=== PATIENT | male | born 1990 | race Caucasian/White ===

== ENCOUNTER 2016-03-31 02:31 | Emergency (ER) | payer MEDICAID, OTHER, SELFPAY ==
[~2016-03-31 02:31] MED LIST: NORCOTAB PO; OMEP40CA2 PO
[2016-03-31] MEDS ORDERED: PERCOCET 5MG/325MG TAB As Ordered ONE ×2 (03:07→04:30)
[2016-03-31 03:43] LABS: ANION GAP 7 MEQ/L (8-16); BLOOD UREA NITROGEN 16 MG/DL (7-18); CALCIUM LEVEL 9.5 MG/DL (8.5-10.1); CARBON DIOXIDE LEVEL 31 MEQ/L (21-32); CHLORIDE LEVEL 107 MEQ/L (98-107); CREATININE FOR GFR 0.89 MG/DL (0.70-1.30); GLOMERULAR FILTRATION RATE > 60.0 (>60); GLUCOSE, FASTING 81 MG/DL (70-105); POTASSIUM SERUM 3.9 MEQ/L (3.5-5.1); SODIUM LEVEL 145 MEQ/L (136-145)
--- NOTE | 2016-03-31 04:10 | REPUSA ---
CLINICAL HISTORY: Testicular pain. TECHNIQUE: Realtime sonographic images were obtained in multiple projections. COMMENTS: Both testicles are of normal size and shape and are of homogeneous echo texture. The right testicle m easures 4.5x2.5x3.1 cm. The right epididymis measures 8 mm. The left testicle measures 4.7x2.6 times a 3 cm. The left epididymis measures 7.5 mm . Bilateral changes of testicular microlithiasis. Color Doppler images reveal normal symmetrical flow to the testicles. There is no evidence for testic ular torsion. There is no evidence of varicocele or hydrocele. IMPRESSION: Left epididymoorchitis. Bilateral changes of testicular microlithiasis. No testicular torsion is seen. Thank you for your kind referral of this patient.
[2016-03-31] MEDS ORDERED: KETOROLAC 30 MG/ML VIAL (J1885) As Ordered ONE (04:29)
[2016-03-31] MEDS ORDERED: LevoFLOXacin 500 MG TABLET As Ordered ONE (04:29)
[2016-03-31] MEDS ORDERED: OXYCODONE/APAP 5MG/325MG(BULK) 1 TAB TAB As Ordered ONE (04:59)
--- NOTE | 2016-03-31 05:22 | EDDOCDS ---
Nurse's Notes [facility] Name: Steve Garcia Age: 25 yrs Sex: Male : 1990 Arrival Date: 03/31/2016 Time: 02:31 Bed D1 Private MD: Diagnosis: Epididymo-orchitis Presentation: 03/31 02:37 Presenting complaint: Patient states: Lest testicular pain with swelling and and a lf1 hardened area that has gotten worse over the last 4 days. Pain is currently 5/10 and is worse when he first wakes up and urinates. Adult Sepsis Screening:. Suicide/Homicide risk assessment- the patient denies having any suicidal and/or homicidal ideations and does not present with any other emotional, behavioral or mental health complaints. Status: Patient is not a guest services or dependent. Transition of care: patient was not received from another setting of care. 02:37 Acuity: FARNAZ Level 3 lf1 02:37 Method Of Arrival: Walkin/Carried/Asstd lf1 02:45 Adult Sepsis Screening: The patient does not have new or worsening altered mentation. tm5 Patient's respiratory rate is less than 22. Systolic blood pressure is greater than 100. Patient has a qSOFA score of 0- Negative Sepsis Screen. Triage Assessment: 02:41 General: Appears in no apparent distress, comfortable, Behavior is cooperative. Pain: lf1 Location: left testicular pain Pain currently is 5 out of 10 on a pain scale. Neurological: Level of Consciousness is awake, alert, Oriented to person, place, time. EENT: No deficits noted. Cardiovascular: Chest pain is denied. Respiratory: Respiratory effort is even, unlabored. GI: Denies nausea, vomiting. : Reports increased pain with urination and ejaculation Denies burning with urination, inability to void, urinary frequency. Derm:. Injury Description: No known injury. 03:27 Pt Declines HIV testing. cf2 Historical: - Allergies: No known drug Allergies; - Home Meds: 1. ibuprofen 800 mg Oral tab 1 tab once a day (Last dose: 03/30/2016 20:30) 2. Ambien 10 mg Oral tab 1 tab once daily 3. tizanidine 4 mg oral cap - PMHx: insomnia; Anxiety; Depression; - PSHx: none; - Social history: Smoking status: Patient states was never smoker of tobacco. No barriers to communication noted, The patient speaks fluent Mosotho, Speaks appropriately for age, Preferred Language: Mosotho. - Family history: Not pertinent. - : The pt / caregiver states he / she is not on anticoagulants. Home medication list is obtained from the patient. - Exposure Risk Screening:: None identified. Screenin:44 Screening information is obtained from the patient. Fall risk: No risks identified. lf1 Assistance ADL's: requires no assistance with activities of daily living. Abuse/DV Screen: The patient / caregiver reports he/she is: not in a situation that causes fear, pain or injury. Nutritional screening: No deficits noted. Advance Directives: Currently, there is no health care proxy. There is no active DNR order. home support is adequate. Assessment: 03:24 General: Appears in no apparent distress, comfortable, Behavior is appropriate for age, cf2 cooperative. Pain: Location: pelvis. Neurological: No deficits noted. : Reports pain in left Pain in left testicle since Monday. Derm: No deficits noted. Musculoskeletal: No deficits noted. Vital Signs: 02:41 Weight 87.54 kg (R); Height 5 ft. 11 in. (180.34 cm); Pain 5/10; lf1 02:45 BP 130 / 78; Pulse 82; Resp 16; Temp 98.4(O); Pulse Ox 97% on R/A; tm5 05:18 BP 132 / 78; Pulse 76; Resp 16; Temp 98.1(O); Pulse Ox 99% ; Pain 4/10; cf2 02:41 Body Mass Index 26.92 (87.54 kg, 180.34 cm) 1 Vitals: 02:41 Log In Time: March 31, 2016 at 02:33. 1 ED Course: 02:33 Patient visited by Guera Bales. jp5 02:33 Patient moved to Waiting jp5 02:39 Triage Initiated lf1 02:44 Patient moved to Triage 1 lf1 02:48 Patient moved to 10 tm5 02:51 Audrey Henning MD is Attending Physician. fg 02:51 Patient visited by Audrey Henning MD. fg 02:57 Becca Cheney,RN is Primary Nurse. cf2 02:57 Patient visited by Becca Cheney,JOSE E. cf2 03:07 Patient moved to Ultrasound en 03:10 Assist provider with pelvic exam:. Labs/Blood culture drawn Urine collected. Clean cf2 catch specimen. Urine specimen sent to lab. 03:24 Patient visited by Becca Cheney RN. cf2 03:24 The patient / caregiver is instructed regarding the plan of care and ED course. Patient cf2 has correct armband on for positive identification. Placed in gown. Bed in low position. Call light in reach. Side rails up X 1. Side rails up X2. Property :Personal belongings accompany Pt. Door closed. Noise minimized. Visitors limited. Lights dimmed. Moved to private room. Verbal reassurance given. Warm blanket given. Pillow given. Head of bed elevated. 03:24 Basic Metabolic Profile Sent. cf2 03:24 Urinalysis Sent. cf2 03:24 Urine Culture Sent. cf2 03:24 GC & Chlamydia Amplification Sent. cf2 03:24 Inserted saline lock: 20 gauge in left antecubital area and blood collected. The cf2 patient tolerated the procedure well. 03:40 Patient moved to 10 en 04:00 Patient visited by Becca Cheney RN. cf2 04:00 [facility] Payment Agreement was scanned into [employer] and attached to record. hs2 04:17 US Scrotal Returned. EDMS 04:36 Matthew Guevara is Referral Physician. fg 05:18 Patient moved to D1 cz 05:18 Discontinued lock. cf2 Administered Medications: 03:10 Drug: oxyCODONE-acetaminophen 1 tabs [oxycodone-acetaminophen 5 mg-325 mg tablet (1 cf2 tabs)] Route: PO; 05:21 Follow up: Response: Pain is decreased cf2 04:30 Drug: ketorolac 30 mg [ketorolac 30 mg/mL (1 mL) injection solution (1 mL)] Route: IVP; cf2 Site: left antecubital; 05:20 Follow up: Response: Pain is decreased cf2 04:30 Drug: levofloxacin 500 mg [levofloxacin 500 mg tablet (1 tabs)] Route: PO; cf2 05:20 Follow up: Response: No Adverse Reaction cf2 04:30 Drug: oxyCODONE-acetaminophen 1 tabs [oxycodone-acetaminophen 5 mg-325 mg tablet (1 cf2 tabs)] Route: PO; 05:20 Follow up: Response: Pain is decreased cf2 05:19 Drug: oxyCODONE-acetaminophen 4 pack 1 packets [oxycodone-acetaminophen 5 mg-325 mg cf2 tablet (1 tabs)] {Co-Signature: nn1 (Rainer Morales RN).} Route: PO; 05:20 Follow up: Response: Pt left department before re-evaluation is appropriate cf2 Order Results: Lab Order: Basic Metabolic Profile; SPEC'M 03/31/16 03:18 Test: GLUCOSE, FASTING; Value: 81; Range: 70-105; Units: MG/DL; Status: F Test: BLOOD UREA NITROGEN; Value: 16; Range: 7-18; Units: MG/DL; Status: F Test: CREATININE FOR GFR; Value: 0.89; Range: 0.70-1.30; Units: MG/DL; Status: F Test: GLOMERULAR FILTRATION RATE; Value: > 60.0; Range: >60; Status: F Test: SODIUM LEVEL; Value: 145; Range: 136-145; Units: MEQ/L; Status: F Test: POTASSIUM SERUM; Value: 3.9; Range: 3.5-5.1; Units: MEQ/L; Status: F Test: CHLORIDE LEVEL; Value: 107; Range: 98-107; Units: MEQ/L; Status: F Test: CARBON DIOXIDE LEVEL; Value: 31; Range: 21-32; Units: MEQ/L; Status: F Test: ANION GAP; Value: 7; Range: 8-16; Abnormal: Below low normal; Units: MEQ/L; Status: F Test: CALCIUM LEVEL; Value: 9.5; Range: 8.5-10.1; Units: MG/DL; Status: F Test Note: ; Units are mL/min/1.73 m2 Chronic Kidney Disease Staging per NKF: Stage I & II GFR >=60 Normal to Mildly Decreased Stage III GFR 30-59 Moderately Decreased Stage IV GFR 15-29 Severely Decreased Stage V GFR <15 Very Little GFR Left ESRD GFR <15 on EDITORIAL MANAGER Lab Order: Urinalysis; SPEC'M 03/31/16 03:19 Test: APPEARANCE, URINE; Value: CLEAR; Range: CLEAR; Status: F Test: COLOR, URINE; Value: YELLOW; Range: YELLOW; Status: F Test: PH,URINE; Value: 5.0; Range: 5.0-9.0; Units: UNITS; Status: F Test: SPECIFIC GRAVITY URINE AUTO; Value: 1.035; Range: 1.002-1.035; Status: F Test: PROTEIN, URINE AUTO; Value: NEGATIVE; Range: NEGATIVE; Units: mg/dL; Status: F Test: GLUCOSE, URINE (UA) AUTO; Value: NEGATIVE; Range: NEGATIVE; Units: mg/dL; Status: F Test: KETONE, URINE AUTO; Value: TRACE; Range: NEGATIVE; Abnormal: Above high normal; Units: mg/dL; Status: F Test: UROBILINOGEN, URINE AUTO; Value: 0.2; Range: 0.0-2.0; Units: mg/dL; Status: F Test: BILIRUBIN, URINE AUTO; Value: NEGATIVE; Range: NEGATIVE; Status: F Test: NITRITE, URINE AUTO; Value: NEGATIVE; Range: NEGATIVE; Status: F Test: LEUKOCYTE ESTERASE, URINE AUTO; Value: NEGATIVE; Range: NEGATIVE; Status: F Test: BLOOD, URINE BLOOD; Value: NEGATIVE; Range: NEGATIVE; Status: F Test: WBC, URINE AUTO; Value: 1; Range: 0-3; Units: /HPF; Status: F Test: RBC, URINE AUTO; Value: 4; Range: 0-3; Abnormal: Above high normal; Units: /HPF; Status: F Test: BACTERIA, URINE AUTO; Value: NEGATIVE; Range: NEGATIVE; Status: F Test: SQUAMOUS EPITHELIAL CELL UR AU; Value: 0; Range: 0-6; Units: /HPF; Status: F Test: MUCUS, URINE; Value: SMALL; Range: NEGATIVE; Status: F Test: HYALINE CAST, URINE AUTO; Value: 0; Range: 0-1; Units: /LPF; Status: F Lab Order: GC & Chlamydia Amplification; SPEC'M 03/31/16 03:19 Test: CHLAMYDIA DNA AMPLIFICATION; Value: NEGATIVE; Range: NEGATIVE; Status: F Test: GC DNA AMPLIFICATION; Value: NEGATIVE; Range: NEGATIVE; Status: F Radiology Order: US Scrotal Test: US Scrotal REASON FOR EXAMINATION: left testicular pain; ; CLINICAL HISTORY: Testicular pain.; TECHNIQUE: Realtime sonographic images were obtained in multiple projections.; COMMENTS:; Both testicles are of normal size and shape and are of homogeneous echo texture. The right testicle m; easures 4.5x2.5x3.1 cm. The right epididymis measures 8 mm. The left testicle measures 4.7x2.6 times; a 3 cm. The left epididymis measures 7.5 mm . Bilateral changes of testicular microlithiasis.; Color Doppler images reveal normal symmetrical flow to the testicles. There is no evidence for testic; ular torsion. There is no evidence of varicocele or hydrocele.; IMPRESSION:; Left epididymoorchitis.; Bilateral changes of testicular microlithiasis.; No testicular torsion is seen.; Thank you for your kind referral of this patient.; ; Outcome: 03:10 Ultrasound Study completed. cf2 04:37 Discharge ordered by Provider. fg 05:18 Discharge Assessment: Patient awake, alert and oriented x 3. No cognitive and/or cf2 functional deficits noted. Patient verbalized understanding of disposition instructions. Patient awake and alert. Oriented to person, place and time. patient administered narcotics - yes. The following High Risk Discharge criteria are identified: None. Discharged to home ambulatory, with significant other. Condition: good. 05:21 Patient left the ED. cf2 Signatures: Dispatcher [employer] EDMS Jonatan Monroe, RN RN Jodie TrotterRN RN lf1 Fatemeh Hanson Jennalee 5 Audrey Henning MD MD Connie Campbell, Reg Reg hs2 Becca Cheney RN RN cf2 Lety Winter RN RN tm5 Rainer Morales RN nn1 MTDD
--- NOTE | 2016-03-31 05:22 | EDDOCDS ---
Physician Documentation [facility] Name: Steve Garcia Age: 25 yrs Sex: Male : 1990 Arrival Date: 03/31/2016 Time: 02:31 Bed D1 Private MD: Disposition: 03/31/16 04:37 Discharged to Home/Self Care. Impression: Epididymo-orchitis. - Condition is Stable. - Discharge Instructions: Orchitis. - Prescriptions for Levaquin 500 mg Oral Tablet - take 1 tablet by ORAL route once daily for 4 days; 4 tablet. - Medication Reconciliation, Local Pharmacy Hours form. - Follow up: Matthew Guevara; When: Call to arrange an appointment; Reason: Continuance of care. - Problem is new. - Symptoms have improved. - Notes: Your ultrasound showed that you have left epididymoorchitis and bilateral changes of testicular microlithiasis. Please follow up with your PCP or the urologist. Historical: - Allergies: No known drug Allergies; - Home Meds: 1. ibuprofen 800 mg Oral tab 1 tab once a day (Last dose: 03/30/2016 20:30) 2. Ambien 10 mg Oral tab 1 tab once daily 3. tizanidine 4 mg oral cap - PMHx: insomnia; Anxiety; Depression; - PSHx: none; - Social history: Smoking status: Patient states was never smoker of tobacco. No barriers to communication noted, The patient speaks fluent Bangladeshi, Speaks appropriately for age, Preferred Language: Bangladeshi. - Family history: Not pertinent. - : The pt / caregiver states he / she is not on anticoagulants. Home medication list is obtained from the patient. - Exposure Risk Screening:: None identified. Vital Signs: 03/31 02:41 Weight 87.54 kg / 192.99 lbs (R); Height 5 ft. 11 in. (180.34 cm); Pain 5/10; lf1 02:45 BP 130 / 78; Pulse 82; Resp 16; Temp 98.4(O); Pulse Ox 97% on R/A; tm5 05:18 BP 132 / 78; Pulse 76; Resp 16; Temp 98.1(O); Pulse Ox 99% ; Pain 4/10; cf2 02:41 Body Mass Index 26.92 (87.54 kg, 180.34 cm) lf1 MDM: 03:05 IV Saline Lock ordered. fg 03:05 oxyCODONE-acetaminophen 5 mg-325 mg 1 tabs PO once ordered. fg 03:06 Basic Metabolic Profile Ordered. EDMS 03:06 Urinalysis Ordered. EDMS 03:06 GC & Chlamydia Amplification Ordered. EDMS 03:06 Urine Culture Ordered. EDMS 03:06 US Scrotal Ordered. EDMS 03:08 DUPLEX SCAN LIMITED (DOPPLER) Ordered. EDMS 03:57 Financial registration complete. hs2 04:00 [facility] Payment Agreement was scanned into [employer] and attached to record. hs2 04:28 ketorolac 30 mg IVP once ordered. fg 04:28 levofloxacin 500 mg PO once ordered. fg 04:28 oxyCODONE-acetaminophen 5 mg-325 mg 1 tabs PO once ordered. fg 04:58 oxyCODONE-acetaminophen 4 pack 5 mg-325 mg 1 packets PO once; Dispense with pt, take as fg per instruction on package ordered. Administered Medications: 03:10 Drug: oxyCODONE-acetaminophen 1 tabs [oxycodone-acetaminophen 5 mg-325 mg tablet (1 cf2 tabs)] Route: PO; 05:21 Follow up: Response: Pain is decreased cf2 04:30 Drug: ketorolac 30 mg [ketorolac 30 mg/mL (1 mL) injection solution (1 mL)] Route: IVP; cf2 Site: left antecubital; 05:20 Follow up: Response: Pain is decreased cf2 04:30 Drug: levofloxacin 500 mg [levofloxacin 500 mg tablet (1 tabs)] Route: PO; cf2 05:20 Follow up: Response: No Adverse Reaction cf2 04:30 Drug: oxyCODONE-acetaminophen 1 tabs [oxycodone-acetaminophen 5 mg-325 mg tablet (1 cf2 tabs)] Route: PO; 05:20 Follow up: Response: Pain is decreased cf2 05:19 Drug: oxyCODONE-acetaminophen 4 pack 1 packets [oxycodone-acetaminophen 5 mg-325 mg cf2 tablet (1 tabs)] {Co-Signature: nn1 (Rainer Morales RN).} Route: PO; 05:20 Follow up: Response: Pt left department before re-evaluation is appropriate cf2 Signatures: Dispatcher [employer] EDMS Jodie TrotterRN RN lf1 Audrey Henning MD MD Connie Campbell, Reg Reg hs2 Becca Cheney RN RN cf2 Rainer Morales RN nn1 The chart was reviewed and I authenticate all verbal orders and agree with the evaluation and treatment provided.Attachments: 04:00 [facility] Payment Agreement hs2 MTDD
--- NOTE | 2016-04-02 06:22 | EDDOCDS ---
Nurse's Notes [facility] Name: Steve Garcia Age: 25 yrs Sex: Male : 1990 Arrival Date: 03/31/2016 Time: 02:31 Bed D1 Private MD: Diagnosis: Epididymo-orchitis Presentation: 03/31 02:37 Presenting complaint: Patient states: Lest testicular pain with swelling and and a lf1 hardened area that has gotten worse over the last 4 days. Pain is currently 5/10 and is worse when he first wakes up and urinates. Adult Sepsis Screening:. Suicide/Homicide risk assessment- the patient denies having any suicidal and/or homicidal ideations and does not present with any other emotional, behavioral or mental health complaints. Status: Patient is not a in service educator or dependent. Transition of care: patient was not received from another setting of care. 02:37 Acuity: FARNAZ Level 3 lf1 02:37 Method Of Arrival: Walkin/Carried/Asstd lf1 02:45 Adult Sepsis Screening: The patient does not have new or worsening altered mentation. tm5 Patient's respiratory rate is less than 22. Systolic blood pressure is greater than 100. Patient has a qSOFA score of 0- Negative Sepsis Screen. Triage Assessment: 02:41 General: Appears in no apparent distress, comfortable, Behavior is cooperative. Pain: lf1 Location: left testicular pain Pain currently is 5 out of 10 on a pain scale. Neurological: Level of Consciousness is awake, alert, Oriented to person, place, time. EENT: No deficits noted. Cardiovascular: Chest pain is denied. Respiratory: Respiratory effort is even, unlabored. GI: Denies nausea, vomiting. : Reports increased pain with urination and ejaculation Denies burning with urination, inability to void, urinary frequency. Derm:. Injury Description: No known injury. 03:27 Pt Declines HIV testing. cf2 Historical: - Allergies: No known drug Allergies; - Home Meds: 1. ibuprofen 800 mg Oral tab 1 tab once a day (Last dose: 03/30/2016 20:30) 2. Ambien 10 mg Oral tab 1 tab once daily 3. tizanidine 4 mg oral cap - PMHx: insomnia; Anxiety; Depression; - PSHx: none; - Social history: Smoking status: Patient states was never smoker of tobacco. No barriers to communication noted, The patient speaks fluent Nicaraguan, Speaks appropriately for age, Preferred Language: Nicaraguan. - Family history: Not pertinent. - : The pt / caregiver states he / she is not on anticoagulants. Home medication list is obtained from the patient. - Exposure Risk Screening:: None identified. Screenin:44 Screening information is obtained from the patient. Fall risk: No risks identified. lf1 Assistance ADL's: requires no assistance with activities of daily living. Abuse/DV Screen: The patient / caregiver reports he/she is: not in a situation that causes fear, pain or injury. Nutritional screening: No deficits noted. Advance Directives: Currently, there is no health care proxy. There is no active DNR order. home support is adequate. Assessment: 03:24 General: Appears in no apparent distress, comfortable, Behavior is appropriate for age, cf2 cooperative. Pain: Location: pelvis. Neurological: No deficits noted. : Reports pain in left Pain in left testicle since Monday. Derm: No deficits noted. Musculoskeletal: No deficits noted. Vital Signs: 02:41 Weight 87.54 kg (R); Height 5 ft. 11 in. (180.34 cm); Pain 5/10; lf1 02:45 BP 130 / 78; Pulse 82; Resp 16; Temp 98.4(O); Pulse Ox 97% on R/A; tm5 05:18 BP 132 / 78; Pulse 76; Resp 16; Temp 98.1(O); Pulse Ox 99% ; Pain 4/10; cf2 02:41 Body Mass Index 26.92 (87.54 kg, 180.34 cm) 1 Vitals: 02:41 Log In Time: March 31, 2016 at 02:33. 1 ED Course: 02:33 Patient visited by Guera Bales. jp5 02:33 Patient moved to Waiting jp5 02:39 Triage Initiated lf1 02:44 Patient moved to Triage 1 lf1 02:48 Patient moved to 10 tm5 02:51 Audrey Henning MD is Attending Physician. fg 02:51 Patient visited by Audrey Henning MD. fg 02:57 Becca Cheney,RN is Primary Nurse. cf2 02:57 Patient visited by Becca Cheney,JOSE E. cf2 03:07 Patient moved to Ultrasound en 03:10 Assist provider with pelvic exam:. Labs/Blood culture drawn Urine collected. Clean cf2 catch specimen. Urine specimen sent to lab. 03:24 Patient visited by Becca Cheney RN. cf2 03:24 The patient / caregiver is instructed regarding the plan of care and ED course. Patient cf2 has correct armband on for positive identification. Placed in gown. Bed in low position. Call light in reach. Side rails up X 1. Side rails up X2. Property :Personal belongings accompany Pt. Door closed. Noise minimized. Visitors limited. Lights dimmed. Moved to private room. Verbal reassurance given. Warm blanket given. Pillow given. Head of bed elevated. 03:24 Basic Metabolic Profile Sent. cf2 03:24 Urinalysis Sent. cf2 03:24 Urine Culture Sent. cf2 03:24 GC & Chlamydia Amplification Sent. cf2 03:24 Inserted saline lock: 20 gauge in left antecubital area and blood collected. The cf2 patient tolerated the procedure well. 03:40 Patient moved to 10 en 04:00 Patient visited by Becca Cheney RN. cf2 04:00 [facility] Payment Agreement was scanned into [employer] and attached to record. hs2 04:17 US Scrotal Returned. EDMS 04:36 Matthew Guevara is Referral Physician. fg 05:18 Patient moved to D1 cz 05:18 Discontinued lock. cf2 20:56 T-Sheet-- Draft Copy was scanned into [employer] and attached to record. klr Administered Medications: 03:10 Drug: oxyCODONE-acetaminophen 1 tabs [oxycodone-acetaminophen 5 mg-325 mg tablet (1 cf2 tabs)] Route: PO; 05:21 Follow up: Response: Pain is decreased cf2 04:30 Drug: ketorolac 30 mg [ketorolac 30 mg/mL (1 mL) injection solution (1 mL)] Route: IVP; cf2 Site: left antecubital; 05:20 Follow up: Response: Pain is decreased cf2 04:30 Drug: levofloxacin 500 mg [levofloxacin 500 mg tablet (1 tabs)] Route: PO; cf2 05:20 Follow up: Response: No Adverse Reaction cf2 04:30 Drug: oxyCODONE-acetaminophen 1 tabs [oxycodone-acetaminophen 5 mg-325 mg tablet (1 cf2 tabs)] Route: PO; 05:20 Follow up: Response: Pain is decreased cf2 05:19 Drug: oxyCODONE-acetaminophen 4 pack 1 packets [oxycodone-acetaminophen 5 mg-325 mg cf2 tablet (1 tabs)] {Co-Signature: nn1 (Rainer Morales RN).} Route: PO; 05:20 Follow up: Response: Pt left department before re-evaluation is appropriate cf2 Order Results: Lab Order: Basic Metabolic Profile; SPEC'M 03/31/16 03:18 Test: GLUCOSE, FASTING; Value: 81; Range: 70-105; Units: MG/DL; Status: F Test: BLOOD UREA NITROGEN; Value: 16; Range: 7-18; Units: MG/DL; Status: F Test: CREATININE FOR GFR; Value: 0.89; Range: 0.70-1.30; Units: MG/DL; Status: F Test: GLOMERULAR FILTRATION RATE; Value: > 60.0; Range: >60; Status: F Test: SODIUM LEVEL; Value: 145; Range: 136-145; Units: MEQ/L; Status: F Test: POTASSIUM SERUM; Value: 3.9; Range: 3.5-5.1; Units: MEQ/L; Status: F Test: CHLORIDE LEVEL; Value: 107; Range: 98-107; Units: MEQ/L; Status: F Test: CARBON DIOXIDE LEVEL; Value: 31; Range: 21-32; Units: MEQ/L; Status: F Test: ANION GAP; Value: 7; Range: 8-16; Abnormal: Below low normal; Units: MEQ/L; Status: F Test: CALCIUM LEVEL; Value: 9.5; Range: 8.5-10.1; Units: MG/DL; Status: F Test Note: ; Units are mL/min/1.73 m2 Chronic Kidney Disease Staging per NKF: Stage I & II GFR >=60 Normal to Mildly Decreased Stage III GFR 30-59 Moderately Decreased Stage IV GFR 15-29 Severely Decreased Stage V GFR <15 Very Little GFR Left ESRD GFR <15 on MARKETING SENIOR RECRUITER Lab Order: Urinalysis; SPEC'M 03/31/16 03:19 Test: APPEARANCE, URINE; Value: CLEAR; Range: CLEAR; Status: F Test: COLOR, URINE; Value: YELLOW; Range: YELLOW; Status: F Test: PH,URINE; Value: 5.0; Range: 5.0-9.0; Units: UNITS; Status: F Test: SPECIFIC GRAVITY URINE AUTO; Value: 1.035; Range: 1.002-1.035; Status: F Test: PROTEIN, URINE AUTO; Value: NEGATIVE; Range: NEGATIVE; Units: mg/dL; Status: F Test: GLUCOSE, URINE (UA) AUTO; Value: NEGATIVE; Range: NEGATIVE; Units: mg/dL; Status: F Test: KETONE, URINE AUTO; Value: TRACE; Range: NEGATIVE; Abnormal: Above high normal; Units: mg/dL; Status: F Test: UROBILINOGEN, URINE AUTO; Value: 0.2; Range: 0.0-2.0; Units: mg/dL; Status: F Test: BILIRUBIN, URINE AUTO; Value: NEGATIVE; Range: NEGATIVE; Status: F Test: NITRITE, URINE AUTO; Value: NEGATIVE; Range: NEGATIVE; Status: F Test: LEUKOCYTE ESTERASE, URINE AUTO; Value: NEGATIVE; Range: NEGATIVE; Status: F Test: BLOOD, URINE BLOOD; Value: NEGATIVE; Range: NEGATIVE; Status: F Test: WBC, URINE AUTO; Value: 1; Range: 0-3; Units: /HPF; Status: F Test: RBC, URINE AUTO; Value: 4; Range: 0-3; Abnormal: Above high normal; Units: /HPF; Status: F Test: BACTERIA, URINE AUTO; Value: NEGATIVE; Range: NEGATIVE; Status: F Test: SQUAMOUS EPITHELIAL CELL UR AU; Value: 0; Range: 0-6; Units: /HPF; Status: F Test: MUCUS, URINE; Value: SMALL; Range: NEGATIVE; Status: F Test: HYALINE CAST, URINE AUTO; Value: 0; Range: 0-1; Units: /LPF; Status: F Lab Order: Urine Culture; SPEC'M 03/31/16 03:18 Test: URINE CULTURE; Value: <EXTERNAL COMMENT eCWMed> FULL REPORT IN LAB NOTES (eCW and Medent).; Status: F Test: URINE CULTURE; Value: URINE CULTURE RESULT NO GROWTH; Status: F Lab Order: GC & Chlamydia Amplification; SPEC'M 03/31/16 03:19 Test: CHLAMYDIA DNA AMPLIFICATION; Value: NEGATIVE; Range: NEGATIVE; Status: F Test: GC DNA AMPLIFICATION; Value: NEGATIVE; Range: NEGATIVE; Status: F Radiology Order: US Scrotal Test: US Scrotal REASON FOR EXAMINATION: left testicular pain; ; CLINICAL HISTORY: Testicular pain.; TECHNIQUE: Realtime sonographic images were obtained in multiple projections.; COMMENTS:; Both testicles are of normal size and shape and are of homogeneous echo texture. The right testicle m; easures 4.5x2.5x3.1 cm. The right epididymis measures 8 mm. The left testicle measures 4.7x2.6 times; a 3 cm. The left epididymis measures 7.5 mm . Bilateral changes of testicular microlithiasis.; Color Doppler images reveal normal symmetrical flow to the testicles. There is no evidence for testic; ular torsion. There is no evidence of varicocele or hydrocele.; IMPRESSION:; Left epididymoorchitis.; Bilateral changes of testicular microlithiasis.; No testicular torsion is seen.; Thank you for your kind referral of this patient.; ; Outcome: 03:10 Ultrasound Study completed. cf2 04:37 Discharge ordered by Provider. fg 05:18 Discharge Assessment: Patient awake, alert and oriented x 3. No cognitive and/or cf2 functional deficits noted. Patient verbalized understanding of disposition instructions. Patient awake and alert. Oriented to person, place and time. patient administered narcotics - yes. The following High Risk Discharge criteria are identified: None. Discharged to home ambulatory, with significant other. Condition: good. 05:21 Patient left the ED. cf2 Signatures: Dispatcher [employer] EDMS Jonatan Monroe RN RN Jodie Trotter RN RN lf1 Fatemeh Hanson Jennalee jp5 Audrey Henning MD MD fg Connie Campbell, Reg Reg hs2 Meghana Carolina Christina, RN RN cf2 Lety Winter RN RN tm5 Rainer Morales RN nn1 Chart Complete MTDD
--- NOTE | 2016-04-02 06:22 | EDDOCDS ---
Physician Documentation [facility] Name: Steve Garcia Age: 25 yrs Sex: Male : 1990 Arrival Date: 03/31/2016 Time: 02:31 Bed D1 Private MD: Disposition: 03/31/16 04:37 Discharged to Home/Self Care. Impression: Epididymo-orchitis. - Condition is Stable. - Discharge Instructions: Orchitis. - Prescriptions for Levaquin 500 mg Oral Tablet - take 1 tablet by ORAL route once daily for 4 days; 4 tablet. - Medication Reconciliation, Local Pharmacy Hours form. - Follow up: Matthew Guevara; When: Call to arrange an appointment; Reason: Continuance of care. - Problem is new. - Symptoms have improved. - Notes: Your ultrasound showed that you have left epididymoorchitis and bilateral changes of testicular microlithiasis. Please follow up with your PCP or the urologist. Historical: - Allergies: No known drug Allergies; - Home Meds: 1. ibuprofen 800 mg Oral tab 1 tab once a day (Last dose: 03/30/2016 20:30) 2. Ambien 10 mg Oral tab 1 tab once daily 3. tizanidine 4 mg oral cap - PMHx: insomnia; Anxiety; Depression; - PSHx: none; - Social history: Smoking status: Patient states was never smoker of tobacco. No barriers to communication noted, The patient speaks fluent Czech, Speaks appropriately for age, Preferred Language: Czech. - Family history: Not pertinent. - : The pt / caregiver states he / she is not on anticoagulants. Home medication list is obtained from the patient. - Exposure Risk Screening:: None identified. Vital Signs: 03/31 02:41 Weight 87.54 kg / 192.99 lbs (R); Height 5 ft. 11 in. (180.34 cm); Pain 5/10; lf1 02:45 BP 130 / 78; Pulse 82; Resp 16; Temp 98.4(O); Pulse Ox 97% on R/A; tm5 05:18 BP 132 / 78; Pulse 76; Resp 16; Temp 98.1(O); Pulse Ox 99% ; Pain 4/10; cf2 02:41 Body Mass Index 26.92 (87.54 kg, 180.34 cm) lf1 MDM: 03:05 IV Saline Lock ordered. fg 03:05 oxyCODONE-acetaminophen 5 mg-325 mg 1 tabs PO once ordered. fg 03:06 Basic Metabolic Profile Ordered. EDMS 03:06 Urinalysis Ordered. EDMS 03:06 GC & Chlamydia Amplification Ordered. EDMS 03:06 Urine Culture Ordered. EDMS 03:06 US Scrotal Ordered. EDMS 03:08 DUPLEX SCAN LIMITED (DOPPLER) Ordered. EDMS 03:57 Financial registration complete. hs2 04:00 [facility] Payment Agreement was scanned into [employer] and attached to record. hs2 04:28 ketorolac 30 mg IVP once ordered. fg 04:28 levofloxacin 500 mg PO once ordered. fg 04:28 oxyCODONE-acetaminophen 5 mg-325 mg 1 tabs PO once ordered. fg 04:58 oxyCODONE-acetaminophen 4 pack 5 mg-325 mg 1 packets PO once; Dispense with pt, take as fg per instruction on package ordered. 20:56 T-Sheet-- Draft Copy was scanned into [employer] and attached to record. klr Administered Medications: 03:10 Drug: oxyCODONE-acetaminophen 1 tabs [oxycodone-acetaminophen 5 mg-325 mg tablet (1 cf2 tabs)] Route: PO; 05:21 Follow up: Response: Pain is decreased cf2 04:30 Drug: ketorolac 30 mg [ketorolac 30 mg/mL (1 mL) injection solution (1 mL)] Route: IVP; cf2 Site: left antecubital; 05:20 Follow up: Response: Pain is decreased cf2 04:30 Drug: levofloxacin 500 mg [levofloxacin 500 mg tablet (1 tabs)] Route: PO; cf2 05:20 Follow up: Response: No Adverse Reaction cf2 04:30 Drug: oxyCODONE-acetaminophen 1 tabs [oxycodone-acetaminophen 5 mg-325 mg tablet (1 cf2 tabs)] Route: PO; 05:20 Follow up: Response: Pain is decreased cf2 05:19 Drug: oxyCODONE-acetaminophen 4 pack 1 packets [oxycodone-acetaminophen 5 mg-325 mg cf2 tablet (1 tabs)] {Co-Signature: nn1 (Rainer Morales RN).} Route: PO; 05:20 Follow up: Response: Pt left department before re-evaluation is appropriate cf2 Signatures: Dispatcher [employer] Jodie BethRN RN lf1 Audrey Henning MD MD Connie Campbell, Reg Reg hs2 Meghana Carolina Christina, RN RN cf2 Rainer Morales RN nn1 The chart was reviewed and I authenticate all verbal orders and agree with the evaluation and treatment provided.Attachments: 04:00 [facility] Payment Agreement hs2 20:56 T-Sheet-- Draft Copy klr Chart Complete MTDD
--- NOTE | 2016-04-02 06:22 | EDDOCDS ---
Physician Documentation [facility] Name: Steve Garcia Age: 25 yrs Sex: Male : 1990 Arrival Date: 03/31/2016 Time: 02:31 Bed D1 Private MD: Disposition: 03/31/16 04:37 Discharged to Home/Self Care. Impression: Epididymo-orchitis. - Condition is Stable. - Discharge Instructions: Orchitis. - Prescriptions for Levaquin 500 mg Oral Tablet - take 1 tablet by ORAL route once daily for 4 days; 4 tablet. - Medication Reconciliation, Local Pharmacy Hours form. - Follow up: Matthew Guevara; When: Call to arrange an appointment; Reason: Continuance of care. - Problem is new. - Symptoms have improved. - Notes: Your ultrasound showed that you have left epididymoorchitis and bilateral changes of testicular microlithiasis. Please follow up with your PCP or the urologist. Historical: - Allergies: No known drug Allergies; - Home Meds: 1. ibuprofen 800 mg Oral tab 1 tab once a day (Last dose: 03/30/2016 20:30) 2. Ambien 10 mg Oral tab 1 tab once daily 3. tizanidine 4 mg oral cap - PMHx: insomnia; Anxiety; Depression; - PSHx: none; - Social history: Smoking status: Patient states was never smoker of tobacco. No barriers to communication noted, The patient speaks fluent Jordanian, Speaks appropriately for age, Preferred Language: Jordanian. - Family history: Not pertinent. - : The pt / caregiver states he / she is not on anticoagulants. Home medication list is obtained from the patient. - Exposure Risk Screening:: None identified. Vital Signs: 03/31 02:41 Weight 87.54 kg / 192.99 lbs (R); Height 5 ft. 11 in. (180.34 cm); Pain 5/10; lf1 02:45 BP 130 / 78; Pulse 82; Resp 16; Temp 98.4(O); Pulse Ox 97% on R/A; tm5 05:18 BP 132 / 78; Pulse 76; Resp 16; Temp 98.1(O); Pulse Ox 99% ; Pain 4/10; cf2 02:41 Body Mass Index 26.92 (87.54 kg, 180.34 cm) lf1 MDM: 03:05 IV Saline Lock ordered. fg 03:05 oxyCODONE-acetaminophen 5 mg-325 mg 1 tabs PO once ordered. fg 03:06 Basic Metabolic Profile Ordered. EDMS 03:06 Urinalysis Ordered. EDMS 03:06 GC & Chlamydia Amplification Ordered. EDMS 03:06 Urine Culture Ordered. EDMS 03:06 US Scrotal Ordered. EDMS 03:08 DUPLEX SCAN LIMITED (DOPPLER) Ordered. EDMS 03:57 Financial registration complete. hs2 04:00 ON LICENSE OF [facility] Payment Agreement was scanned into [employer] and attached to record. hs2 04:28 ketorolac 30 mg IVP once ordered. fg 04:28 levofloxacin 500 mg PO once ordered. fg 04:28 oxyCODONE-acetaminophen 5 mg-325 mg 1 tabs PO once ordered. fg 04:58 oxyCODONE-acetaminophen 4 pack 5 mg-325 mg 1 packets PO once; Dispense with pt, take as fg per instruction on package ordered. 20:56 T-Sheet-- Draft Copy was scanned into [employer] and attached to record. klr Administered Medications: 03:10 Drug: oxyCODONE-acetaminophen 1 tabs [oxycodone-acetaminophen 5 mg-325 mg tablet (1 cf2 tabs)] Route: PO; 05:21 Follow up: Response: Pain is decreased cf2 04:30 Drug: ketorolac 30 mg [ketorolac 30 mg/mL (1 mL) injection solution (1 mL)] Route: IVP; cf2 Site: left antecubital; 05:20 Follow up: Response: Pain is decreased cf2 04:30 Drug: levofloxacin 500 mg [levofloxacin 500 mg tablet (1 tabs)] Route: PO; cf2 05:20 Follow up: Response: No Adverse Reaction cf2 04:30 Drug: oxyCODONE-acetaminophen 1 tabs [oxycodone-acetaminophen 5 mg-325 mg tablet (1 cf2 tabs)] Route: PO; 05:20 Follow up: Response: Pain is decreased cf2 05:19 Drug: oxyCODONE-acetaminophen 4 pack 1 packets [oxycodone-acetaminophen 5 mg-325 mg cf2 tablet (1 tabs)] {Co-Signature: nn1 (Rainer Morales RN).} Route: PO; 05:20 Follow up: Response: Pt left department before re-evaluation is appropriate cf2 Signatures: Dispatcher [employer] Jodie BethRN RN lf1 Audrey Henning MD MD Connie Campbell, Reg Reg hs2 Meghana Carolina Christina, RN RN cf2 Rainer Morales RN nn1 The chart was reviewed and I authenticate all verbal orders and agree with the evaluation and treatment provided.Attachments: 04:00 ON LICENSE OF [facility] Payment Agreement hs2 20:56 T-Sheet-- Draft Copy klr Chart Complete MTDD
--- NOTE | 2016-04-02 20:05 | EDDOCDS ---
Physician Documentation [facility] Name: Steve Garcia Age: 25 yrs Sex: Male : 1990 Arrival Date: 03/31/2016 Time: 02:31 Bed D1 Private MD: Disposition: 03/31/16 04:37 Discharged to Home/Self Care. Impression: Epididymo-orchitis. - Condition is Stable. - Discharge Instructions: Orchitis. - Prescriptions for Levaquin 500 mg Oral Tablet - take 1 tablet by ORAL route once daily for 4 days; 4 tablet. - Medication Reconciliation, Local Pharmacy Hours form. - Follow up: Matthew Guevara; When: Call to arrange an appointment; Reason: Continuance of care. - Problem is new. - Symptoms have improved. - Notes: Your ultrasound showed that you have left epididymoorchitis and bilateral changes of testicular microlithiasis. Please follow up with your PCP or the urologist. Historical: - Allergies: No known drug Allergies; - Home Meds: 1. ibuprofen 800 mg Oral tab 1 tab once a day (Last dose: 03/30/2016 20:30) 2. Ambien 10 mg Oral tab 1 tab once daily 3. tizanidine 4 mg oral cap - PMHx: insomnia; Anxiety; Depression; - PSHx: none; - Social history: Smoking status: Patient states was never smoker of tobacco. No barriers to communication noted, The patient speaks fluent Polish, Speaks appropriately for age, Preferred Language: Polish. - Family history: Not pertinent. - : The pt / caregiver states he / she is not on anticoagulants. Home medication list is obtained from the patient. - Exposure Risk Screening:: None identified. Vital Signs: 03/31 02:41 Weight 87.54 kg / 192.99 lbs (R); Height 5 ft. 11 in. (180.34 cm); Pain 5/10; lf1 02:45 BP 130 / 78; Pulse 82; Resp 16; Temp 98.4(O); Pulse Ox 97% on R/A; tm5 05:18 BP 132 / 78; Pulse 76; Resp 16; Temp 98.1(O); Pulse Ox 99% ; Pain 4/10; cf2 02:41 Body Mass Index 26.92 (87.54 kg, 180.34 cm) lf1 MDM: 03:05 IV Saline Lock ordered. fg 03:05 oxyCODONE-acetaminophen 5 mg-325 mg 1 tabs PO once ordered. fg 03:06 Basic Metabolic Profile Ordered. EDMS 03:06 Urinalysis Ordered. EDMS 03:06 GC & Chlamydia Amplification Ordered. EDMS 03:06 Urine Culture Ordered. EDMS 03:06 US Scrotal Ordered. EDMS 03:08 DUPLEX SCAN LIMITED (DOPPLER) Ordered. EDMS 03:57 Financial registration complete. hs2 04:00 COUNTS INCLUDE 234 BEDS AT THE [facility] Payment Agreement was scanned into [employer] and attached to record. hs2 04:28 ketorolac 30 mg IVP once ordered. fg 04:28 levofloxacin 500 mg PO once ordered. fg 04:28 oxyCODONE-acetaminophen 5 mg-325 mg 1 tabs PO once ordered. fg 04:58 oxyCODONE-acetaminophen 4 pack 5 mg-325 mg 1 packets PO once; Dispense with pt, take as fg per instruction on package ordered. 20:56 T-Sheet-- Draft Copy was scanned into [employer] and attached to record. klr Administered Medications: 03:10 Drug: oxyCODONE-acetaminophen 1 tabs [oxycodone-acetaminophen 5 mg-325 mg tablet (1 cf2 tabs)] Route: PO; 05:21 Follow up: Response: Pain is decreased cf2 04:30 Drug: ketorolac 30 mg [ketorolac 30 mg/mL (1 mL) injection solution (1 mL)] Route: IVP; cf2 Site: left antecubital; 05:20 Follow up: Response: Pain is decreased cf2 04:30 Drug: levofloxacin 500 mg [levofloxacin 500 mg tablet (1 tabs)] Route: PO; cf2 05:20 Follow up: Response: No Adverse Reaction cf2 04:30 Drug: oxyCODONE-acetaminophen 1 tabs [oxycodone-acetaminophen 5 mg-325 mg tablet (1 cf2 tabs)] Route: PO; 05:20 Follow up: Response: Pain is decreased cf2 05:19 Drug: oxyCODONE-acetaminophen 4 pack 1 packets [oxycodone-acetaminophen 5 mg-325 mg cf2 tablet (1 tabs)] {Co-Signature: nn1 (Rainer Morales RN).} Route: PO; 05:20 Follow up: Response: Pt left department before re-evaluation is appropriate cf2 Signatures: Dispatcher [employer] Jodie BethRN RN lf1 Audrey Henning MD MD Connie Campbell, Reg Reg hs2 Meghana Carolina Christina, RN RN cf2 Rainer Morales RN nn1 The chart was reviewed and I authenticate all verbal orders and agree with the evaluation and treatment provided.Attachments: 04:00 COUNTS INCLUDE 234 BEDS AT THE [facility] Payment Agreement hs2 20:56 T-Sheet-- Draft Copy klr Chart Complete MTDD
--- NOTE | 2016-04-02 20:05 | EDDOCDS ---
Physician Documentation [facility] Name: Steve Garcia Age: 25 yrs Sex: Male : 1990 Arrival Date: 03/31/2016 Time: 02:31 Bed D1 Private MD: Disposition: 03/31/16 04:37 Discharged to Home/Self Care. Impression: Epididymo-orchitis. - Condition is Stable. - Discharge Instructions: Orchitis. - Prescriptions for Levaquin 500 mg Oral Tablet - take 1 tablet by ORAL route once daily for 4 days; 4 tablet. - Medication Reconciliation, Local Pharmacy Hours form. - Follow up: Matthew Guevara; When: Call to arrange an appointment; Reason: Continuance of care. - Problem is new. - Symptoms have improved. - Notes: Your ultrasound showed that you have left epididymoorchitis and bilateral changes of testicular microlithiasis. Please follow up with your PCP or the urologist. Historical: - Allergies: No known drug Allergies; - Home Meds: 1. ibuprofen 800 mg Oral tab 1 tab once a day (Last dose: 03/30/2016 20:30) 2. Ambien 10 mg Oral tab 1 tab once daily 3. tizanidine 4 mg oral cap - PMHx: insomnia; Anxiety; Depression; - PSHx: none; - Social history: Smoking status: Patient states was never smoker of tobacco. No barriers to communication noted, The patient speaks fluent Botswanan, Speaks appropriately for age, Preferred Language: Botswanan. - Family history: Not pertinent. - : The pt / caregiver states he / she is not on anticoagulants. Home medication list is obtained from the patient. - Exposure Risk Screening:: None identified. Vital Signs: 03/31 02:41 Weight 87.54 kg / 192.99 lbs (R); Height 5 ft. 11 in. (180.34 cm); Pain 5/10; lf1 02:45 BP 130 / 78; Pulse 82; Resp 16; Temp 98.4(O); Pulse Ox 97% on R/A; tm5 05:18 BP 132 / 78; Pulse 76; Resp 16; Temp 98.1(O); Pulse Ox 99% ; Pain 4/10; cf2 02:41 Body Mass Index 26.92 (87.54 kg, 180.34 cm) lf1 MDM: 03:05 IV Saline Lock ordered. fg 03:05 oxyCODONE-acetaminophen 5 mg-325 mg 1 tabs PO once ordered. fg 03:06 Basic Metabolic Profile Ordered. EDMS 03:06 Urinalysis Ordered. EDMS 03:06 GC & Chlamydia Amplification Ordered. EDMS 03:06 Urine Culture Ordered. EDMS 03:06 US Scrotal Ordered. EDMS 03:08 DUPLEX SCAN LIMITED (DOPPLER) Ordered. EDMS 03:57 Financial registration complete. hs2 04:00 [facility] Payment Agreement was scanned into [employer] and attached to record. hs2 04:28 ketorolac 30 mg IVP once ordered. fg 04:28 levofloxacin 500 mg PO once ordered. fg 04:28 oxyCODONE-acetaminophen 5 mg-325 mg 1 tabs PO once ordered. fg 04:58 oxyCODONE-acetaminophen 4 pack 5 mg-325 mg 1 packets PO once; Dispense with pt, take as fg per instruction on package ordered. 20:56 T-Sheet-- Draft Copy was scanned into [employer] and attached to record. klr Administered Medications: 03:10 Drug: oxyCODONE-acetaminophen 1 tabs [oxycodone-acetaminophen 5 mg-325 mg tablet (1 cf2 tabs)] Route: PO; 05:21 Follow up: Response: Pain is decreased cf2 04:30 Drug: ketorolac 30 mg [ketorolac 30 mg/mL (1 mL) injection solution (1 mL)] Route: IVP; cf2 Site: left antecubital; 05:20 Follow up: Response: Pain is decreased cf2 04:30 Drug: levofloxacin 500 mg [levofloxacin 500 mg tablet (1 tabs)] Route: PO; cf2 05:20 Follow up: Response: No Adverse Reaction cf2 04:30 Drug: oxyCODONE-acetaminophen 1 tabs [oxycodone-acetaminophen 5 mg-325 mg tablet (1 cf2 tabs)] Route: PO; 05:20 Follow up: Response: Pain is decreased cf2 05:19 Drug: oxyCODONE-acetaminophen 4 pack 1 packets [oxycodone-acetaminophen 5 mg-325 mg cf2 tablet (1 tabs)] {Co-Signature: nn1 (Rainer Morales RN).} Route: PO; 05:20 Follow up: Response: Pt left department before re-evaluation is appropriate cf2 Signatures: Dispatcher [employer] Jodie BethRN RN lf1 Audrey Henning MD MD Connie Campbell, Reg Reg hs2 Meghana Carolina Christina, RN RN cf2 Rainer Morales RN nn1 The chart was reviewed and I authenticate all verbal orders and agree with the evaluation and treatment provided.Attachments: 04:00 [facility] Payment Agreement hs2 20:56 T-Sheet-- Draft Copy klr Chart Complete MTDD
== END 2016-03-31 05:21 | disposition home or self-care (01) ==
LOC: M ED 02:31 → MERGE 02:31 → M ED 05:21
DX: N45.1 Epididymitis (principal); N45.2 Orchitis; F41.9 Anxiety disorder, unspecified; F32.9 Major depressive disorder, single episode, unspecified; G47.00 Insomnia, unspecified; Z79.899 Other long term (current) drug therapy
CPT/HCPCS: 36415; 76870; 80048; 81001; 87086; 87491; 87591; 93976; 96374; 99282; 99285; J1885

== ENCOUNTER 2016-03-31 16:16 | Emergency (ER) | payer MEDICAID, OTHER ==
--- NOTE | 2016-03-31 17:10 | EDDOCDS ---
Nurse's Notes [facility] Name: Steve Garcia Age: 25 yrs Sex: Male : 1990 Arrival Date: 03/31/2016 Time: 16:16 Bed Triage 2 Private MD: Meliton Haro R. Diagnosis: Tqxmqjoxx-hiwuhkio-vvin Presentation: 03/31 16:21 Presenting complaint: Patient states: seen in ED yesterday for orchitis urology has not [facility] called him back for f/u appt. and pt is out of pain medication was only given a 4 pack of oxycodone to go home. Adult Sepsis Screening: The patient does not have new or worsening altered mentation. Patient's respiratory rate is less than 22. Systolic blood pressure is greater than 100. Patient has a qSOFA score of 0- Negative Sepsis Screen. Suicide/Homicide risk assessment- the patient denies having any suicidal and/or homicidal ideations and does not present with any other emotional, behavioral or mental health complaints. Status: Patient is not a neuropsychology service director or dependent. Transition of care: patient was not received from another setting of care. 16:21 Acuity: FARNAZ Level 5 [facility] 16:21 Method Of Arrival: Walkin/Carried/Asstd [facility] Triage Assessment: 16:29 General: Appears comfortable, well nourished, well groomed, Behavior is appropriate for [facility] age, pleasant. Pain: Location: left testicle Pain currently is 5 out of 10 on a pain scale. HIV screening NA for this visit Offered previously. Neurological: Level of Consciousness is awake, alert, Oriented to person, place, time. Respiratory: Airway is patent Respiratory effort is even, unlabored. : Reports pain Pain is 5 out of 10 on a pain scale. left testicle. Derm: Skin is pink, warm & dry. Historical: - Allergies: No known drug Allergies; - Home Meds: 1. Ambien 10 mg Oral tab 1 tab nightly as needed (Last dose: 03/29/2016) 2. tizanidine 4 mg oral cap 1 cap as needed (Last dose: Unknown) 3. ibuprofen 800 mg Oral tab 1 tab once a day (Last dose: 03/31/2016 12:00) 4. Levaquin 500 mg Oral tab 1 tab once daily (Last dose: 03/30/2016) - PMHx: Anxiety; Depression; insomnia; - PSHx: none; - Social history: Smoking status: Patient states was never smoker of tobacco. No barriers to communication noted, The patient speaks fluent Kazakh. - Family history: Not pertinent. - : The pt / caregiver states he / she is not on anticoagulants. Home medication list is obtained from the patient. - Exposure Risk Screening:: None identified. Screenin:06 Screening information is obtained from the patient. Fall risk: No risks identified. [facility] Assistance ADL's: requires no assistance with activities of daily living. Abuse/DV Screen: The patient / caregiver reports he/she is: not in a situation that causes fear, pain or injury. Nutritional screening: No deficits noted. Advance Directives: There is no active DNR order. home support is adequate. Assessment: 17:06 General: Appears in no apparent distress, comfortable, Behavior is appropriate for age, [facility] cooperative. Neurological: Level of Consciousness is awake, alert, Oriented to person, place, time. Respiratory: Airway is patent Respiratory effort is even, unlabored, Respiratory pattern is regular, symmetrical. Derm: Skin is pink, warm & dry. Vital Signs: 16:18 BP 139 / 78; Pulse 76; Resp 18 S; Temp 97.7(O); Pulse Ox 98% on R/A; Weight 88.45 kg gr2 (R); Height 6 ft. 0 in. (182.88 cm) (R); Pain 5/10; 16:18 Body Mass Index 26.45 (88.45 kg, 182.88 cm) gr2 Vitals: 16:18 Log In Time: March 31, 2016 at 16:18. gr2 ED Course: 16:18 Patient visited by Lou Mooney. gr2 16:18 Meliton Haro is Private Physician. gr2 16:18 Patient moved to Waiting gr2 16:19 Patient visited by Lou Mooney. gr2 16:20 Patient moved to Pre RCE gr2 16:23 Triage Initiated [facility] 16:31 Patient moved to Triage 2 [facility] 16:38 Desirae Honeycutt PA-C [facility]. dt4 16:38 Jefferson Fagan MD is Attending Physician. dt4 16:38 Patient visited by Desirae Honeycutt PA-C. dt4 16:50 Meliton Haro is Referral Physician. dt4 16:50 Matthew Guevara is Referral Physician. dt4 16:53 [facility] Payment Agreement was scanned into [employer] and attached to record. [id number] 17:06 The patient / caregiver is instructed regarding the plan of care and ED course. [facility] 17:06 No IV's were initiated during this patient's visit. No procedures done that require [facility] assistance. Order Results: There are currently no results for this order. Outcome: 16:51 Discharge ordered by Provider. dt4 17:06 Discharge Assessment: Patient awake, alert and oriented x 3. No cognitive and/or [facility] functional deficits noted. Patient verbalized understanding of disposition instructions. patient administered narcotics - no. The following High Risk Discharge criteria are identified: None. Discharged to home ambulatory. Condition: good Condition: stable Condition: improved. Discharge instructions given to patient, Instructed on discharge instructions, follow up and referral plans. medication usage, no driving heavy equipment, no drinking with medication, Demonstrated understanding of instructions, medications, Pt was receptive of discharge instructions/ teaching. Prescriptions given X 2. No special radiology studies were completed. Property :Personal belongings accompany Pt. 17:09 Patient left the ED. [facility] Signatures: Kayy Sharif RN RN [facility] Kamala SmartRN RN [facility] Lou Mooney gr2 Desirae Honeycutt PA-C PA-C dt4 Sasha Marc, Reg Reg ks16 Corrections: (The following items were deleted from the chart) 16:29 16:21 Presenting complaint: Patient states: seen in ED yesterday for orchitis urology [facility] has not called him back for f/u appt. and pt is out of pain medication [facility] MTDD
--- NOTE | 2016-03-31 17:10 | EDDOCDS ---
Physician Documentation [facility] Name: Steve Garcia Age: 25 yrs Sex: Male : 1990 Arrival Date: 03/31/2016 Time: 16:16 Bed Triage 2 Private MD: Meliton Haro R. Disposition: 03/31/16 16:51 Discharged to Home/Self Care. Impression: Epididymo-orchitis - left. - Condition is Stable. - Discharge Instructions: Orchitis. - Prescriptions for Naprosyn 500 mg Oral Tablet - take 1 tablet by ORAL route every 12 hours As needed take with food; 30 tablet. Gering 5- 325 mg Oral Tablet - take 1 tablet by ORAL route every 6 hours As needed MDD: 4 tabs; 20 tablet. - Medication Reconciliation, Local Pharmacy Hours form. - Follow up: Emergency Department; When: As needed; Reason: Worsening of conditions. Follow up: Meliton Haro; When: 2 - 3 days; Reason: Wound/Symptom Recheck, Recheck today's complaints, Continuance of care. Follow up: Matthew Guevara; When: Call to arrange an appointment; Reason: Wound/Symptom Recheck, Further diagnostic work-up, Recheck today's complaints, Continuance of care, To establish care. - Problem is new. - Symptoms are unchanged. - Notes: CONTINUE TAKING THE ANTBIOTIC DIRECTED UNTIL IT IS GONE. TAKE THE PAIN MEDICATIONS DIRECTED, NEEDED FOR PAIN. 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 Historical: - Allergies: No known drug Allergies; - Home Meds: 1. Ambien 10 mg Oral tab 1 tab nightly as needed (Last dose: 03/29/2016) 2. tizanidine 4 mg oral cap 1 cap as needed (Last dose: Unknown) 3. ibuprofen 800 mg Oral tab 1 tab once a day (Last dose: 03/31/2016 12:00) 4. Levaquin 500 mg Oral tab 1 tab once daily (Last dose: 03/30/2016) - PMHx: Anxiety; Depression; insomnia; - PSHx: none; - Social history: Smoking status: Patient states was never smoker of tobacco. No barriers to communication noted, The patient speaks fluent Slovenian. - Family history: Not pertinent. - : The pt / caregiver states he / she is not on anticoagulants. Home medication list is obtained from the patient. - Exposure Risk Screening:: None identified. Vital Signs: 03/31 16:18 BP 139 / 78; Pulse 76; Resp 18 S; Temp 97.7(O); Pulse Ox 98% on R/A; Weight 88.45 kg / gr2 195 lbs (R); Height 6 ft. 0 in. (182.88 cm) (R); Pain 5/10; 16:18 Body Mass Index 26.45 (88.45 kg, 182.88 cm) gr2 MDM: 16:53 Financial registration complete. [email or web address] 16:53 [facility] Payment Agreement was scanned into [employer] and attached to record. [email or web address] Signatures: Kayy Sharif RN RN Kamala CamposRN RN [facility] Desirae Honeycutt PA-C PAMylene dt4 Sasha Marc, Reg Reg ks16 The chart was reviewed and I authenticate all verbal orders and agree with the evaluation and treatment provided.Attachments: 16:53 [facility] Payment Agreement ks16 MTDD
--- NOTE | 2016-04-02 18:10 | EDDOCDS ---
Nurse's Notes [facility] Name: Steve Garcia Age: 25 yrs Sex: Male : 1990 Arrival Date: 03/31/2016 Time: 16:16 Bed Triage 2 Private MD: Meliton Haro R. Diagnosis: Wmvnunxvz-[id number] Presentation: 03/31 16:21 Presenting complaint: Patient states: seen in ED yesterday for orchitis urology has not [facility] called him back for f/u appt. and pt is out of pain medication was only given a 4 pack of oxycodone to go home. Adult Sepsis Screening: The patient does not have new or worsening altered mentation. Patient's respiratory rate is less than 22. Systolic blood pressure is greater than 100. Patient has a qSOFA score of 0- Negative Sepsis Screen. Suicide/Homicide risk assessment- the patient denies having any suicidal and/or homicidal ideations and does not present with any other emotional, behavioral or mental health complaints. Status: Patient is not a director of home health services or dependent. Transition of care: patient was not received from another setting of care. 16:21 Acuity: FARNAZ Level 5 [facility] 16:21 Method Of Arrival: Walkin/Carried/Asstd [facility] Triage Assessment: 16:29 General: Appears comfortable, well nourished, well groomed, Behavior is appropriate for [facility] age, pleasant. Pain: Location: left testicle Pain currently is 5 out of 10 on a pain scale. HIV screening NA for this visit Offered previously. Neurological: Level of Consciousness is awake, alert, Oriented to person, place, time. Respiratory: Airway is patent Respiratory effort is even, unlabored. : Reports pain Pain is 5 out of 10 on a pain scale. left testicle. Derm: Skin is pink, warm & dry. Historical: - Allergies: No known drug Allergies; - Home Meds: 1. Ambien 10 mg Oral tab 1 tab nightly as needed (Last dose: 03/29/2016) 2. tizanidine 4 mg oral cap 1 cap as needed (Last dose: Unknown) 3. ibuprofen 800 mg Oral tab 1 tab once a day (Last dose: 03/31/2016 12:00) 4. Levaquin 500 mg Oral tab 1 tab once daily (Last dose: 03/30/2016) - PMHx: Anxiety; Depression; insomnia; - PSHx: none; - Social history: Smoking status: Patient states was never smoker of tobacco. No barriers to communication noted, The patient speaks fluent Mohawk. - Family history: Not pertinent. - : The pt / caregiver states he / she is not on anticoagulants. Home medication list is obtained from the patient. - Exposure Risk Screening:: None identified. Screenin:06 Screening information is obtained from the patient. Fall risk: No risks identified. [facility] Assistance ADL's: requires no assistance with activities of daily living. Abuse/DV Screen: The patient / caregiver reports he/she is: not in a situation that causes fear, pain or injury. Nutritional screening: No deficits noted. Advance Directives: There is no active DNR order. home support is adequate. Assessment: 17:06 General: Appears in no apparent distress, comfortable, Behavior is appropriate for age, [facility] cooperative. Neurological: Level of Consciousness is awake, alert, Oriented to person, place, time. Respiratory: Airway is patent Respiratory effort is even, unlabored, Respiratory pattern is regular, symmetrical. Derm: Skin is pink, warm & dry. Vital Signs: 16:18 BP 139 / 78; Pulse 76; Resp 18 S; Temp 97.7(O); Pulse Ox 98% on R/A; Weight 88.45 kg gr2 (R); Height 6 ft. 0 in. (182.88 cm) (R); Pain 5/10; 16:18 Body Mass Index 26.45 (88.45 kg, 182.88 cm) gr2 Vitals: 16:18 Log In Time: March 31, 2016 at 16:18. gr2 ED Course: 16:18 Patient visited by Lou Mooney. gr2 16:18 Meliton Haro is Private Physician. gr2 16:18 Patient moved to Waiting gr2 16:19 Patient visited by Lou Mooney. gr2 16:20 Patient moved to Pre RCE gr2 16:23 Triage Initiated [facility] 16:31 Patient moved to Triage 2 [facility] 16:38 Desirae Honeycutt PA-C is [facility]. dt4 16:38 Jefferson Fagan MD is Attending Physician. dt4 16:38 Patient visited by Desirae Honeycutt PA-C. dt4 16:50 Meliton Haro is Referral Physician. dt4 16:50 Matthew Guevara is Referral Physician. dt4 16:53 [facility] Payment Agreement was scanned into [employer] and attached to record. ks16 17:06 The patient / caregiver is instructed regarding the plan of care and ED course. [facility] 17:06 No IV's were initiated during this patient's visit. No procedures done that require [facility] assistance. 04/01 17:35 T-Sheet-- Draft Copy was scanned into [employer] and attached to record. klr Order Results: There are currently no results for this order. Outcome: 03/31 16:51 Discharge ordered by Provider. dt4 17:06 Discharge Assessment: Patient awake, alert and oriented x 3. No cognitive and/or [facility] functional deficits noted. Patient verbalized understanding of disposition instructions. patient administered narcotics - no. The following High Risk Discharge criteria are identified: None. Discharged to home ambulatory. Condition: good Condition: stable Condition: improved. Discharge instructions given to patient, Instructed on discharge instructions, follow up and referral plans. medication usage, no driving heavy equipment, no drinking with medication, Demonstrated understanding of instructions, medications, Pt was receptive of discharge instructions/ teaching. Prescriptions given X 2. No special radiology studies were completed. Property :Personal belongings accompany Pt. 17:09 Patient left the ED. [facility] Signatures: Kayy Sharif RN RN [facility] Kamala SmartRN RN [facility] Lou Mooney gr2 Desirae Honeycutt, JUD PAMylene dt4 Sasha Marc, Reg Reg ks16 Meghana Carolina [facility] Corrections: (The following items were deleted from the chart) 16:29 16:21 Presenting complaint: Patient states: seen in ED yesterday for orchitis urology [facility] has not called him back for f/u appt. and pt is out of pain medication [facility] Chart Complete MTDD
--- NOTE | 2016-04-02 18:10 | EDDOCDS ---
Physician Documentation [facility] Name: Steve Garcia Age: 25 yrs Sex: Male : 1990 Arrival Date: 03/31/2016 Time: 16:16 Bed Triage 2 Private MD: Meliton Haro R. Disposition: 03/31/16 16:51 Discharged to Home/Self Care. Impression: Epididymo-orchitis - left. - Condition is Stable. - Discharge Instructions: Orchitis. - Prescriptions for Naprosyn 500 mg Oral Tablet - take 1 tablet by ORAL route every 12 hours As needed take with food; 30 tablet. [place] 5- 325 mg Oral Tablet - take 1 tablet by ORAL route every 6 hours As needed MDD: 4 tabs; 20 tablet. - Medication Reconciliation, Local Pharmacy Hours form. - Follow up: Emergency Department; When: As needed; Reason: Worsening of conditions. Follow up: Meliton Haro; When: 2 - 3 days; Reason: Wound/Symptom Recheck, Recheck today's complaints, Continuance of care. Follow up: Matthew Guevara; When: Call to arrange an appointment; Reason: Wound/Symptom Recheck, Further diagnostic work-up, Recheck today's complaints, Continuance of care, To establish care. - Problem is new. - Symptoms are unchanged. - Notes: CONTINUE TAKING THE ANTBIOTIC DIRECTED UNTIL IT IS GONE. TAKE THE PAIN MEDICATIONS DIRECTED, NEEDED FOR PAIN. 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 Historical: - Allergies: No known drug Allergies; - Home Meds: 1. Ambien 10 mg Oral tab 1 tab nightly as needed (Last dose: 03/29/2016) 2. tizanidine 4 mg oral cap 1 cap as needed (Last dose: Unknown) 3. ibuprofen 800 mg Oral tab 1 tab once a day (Last dose: 03/31/2016 12:00) 4. Levaquin 500 mg Oral tab 1 tab once daily (Last dose: 03/30/2016) - PMHx: Anxiety; Depression; insomnia; - PSHx: none; - Social history: Smoking status: Patient states was never smoker of tobacco. No barriers to communication noted, The patient speaks fluent Greek. - Family history: Not pertinent. - : The pt / caregiver states he / she is not on anticoagulants. Home medication list is obtained from the patient. - Exposure Risk Screening:: None identified. Vital Signs: 03/31 16:18 BP 139 / 78; Pulse 76; Resp 18 S; Temp 97.7(O); Pulse Ox 98% on R/A; Weight 88.45 kg / gr2 195 lbs (R); Height 6 ft. 0 in. (182.88 cm) (R); Pain 5/10; 16:18 Body Mass Index 26.45 (88.45 kg, 182.88 cm) gr2 MDM: 16:53 Financial registration complete. [facility] 16:53 [facility] Payment Agreement was scanned into [employer] and attached to record. 04/01 17:35 T-Sheet-- Draft Copy was scanned into [employer] and attached to record. klr Signatures: Kayy Sharif RN RN Kamala Campos RN RN [facility] Desirae Honeycutt PA-C PA-C dt4 Sasha Marc, Reg Reg ks16 Meghana Carolina The chart was reviewed and I authenticate all verbal orders and agree with the evaluation and treatment provided.Attachments: 03/31 16:53 [facility] Payment Agreement 04/01 17:35 T-Sheet-- Draft Copy klr Chart Complete MTDD
--- NOTE | 2016-04-02 18:10 | EDDOCDS ---
Physician Documentation [facility] Name: Steve Garcia Age: 25 yrs Sex: Male : 1990 Arrival Date: 03/31/2016 Time: 16:16 Bed Triage 2 Private MD: Meliton Haro R. Disposition: 03/31/16 16:51 Discharged to Home/Self Care. Impression: Epididymo-orchitis - left. - Condition is Stable. - Discharge Instructions: Orchitis. - Prescriptions for Naprosyn 500 mg Oral Tablet - take 1 tablet by ORAL route every 12 hours As needed take with food; 30 tablet. [place] 5- 325 mg Oral Tablet - take 1 tablet by ORAL route every 6 hours As needed MDD: 4 tabs; 20 tablet. - Medication Reconciliation, Local Pharmacy Hours form. - Follow up: Emergency Department; When: As needed; Reason: Worsening of conditions. Follow up: Meliton Haro; When: 2 - 3 days; Reason: Wound/Symptom Recheck, Recheck today's complaints, Continuance of care. Follow up: Matthew Guevara; When: Call to arrange an appointment; Reason: Wound/Symptom Recheck, Further diagnostic work-up, Recheck today's complaints, Continuance of care, To establish care. - Problem is new. - Symptoms are unchanged. - Notes: CONTINUE TAKING THE ANTBIOTIC DIRECTED UNTIL IT IS GONE. TAKE THE PAIN MEDICATIONS DIRECTED, NEEDED FOR PAIN. 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 Historical: - Allergies: No known drug Allergies; - Home Meds: 1. Ambien 10 mg Oral tab 1 tab nightly as needed (Last dose: 03/29/2016) 2. tizanidine 4 mg oral cap 1 cap as needed (Last dose: Unknown) 3. ibuprofen 800 mg Oral tab 1 tab once a day (Last dose: 03/31/2016 12:00) 4. Levaquin 500 mg Oral tab 1 tab once daily (Last dose: 03/30/2016) - PMHx: Anxiety; Depression; insomnia; - PSHx: none; - Social history: Smoking status: Patient states was never smoker of tobacco. No barriers to communication noted, The patient speaks fluent [place]ine[place]. - Family history: Not pertinent. - : The pt / caregiver states he / she is not on anticoagulants. Home medication list is obtained from the patient. - Exposure Risk Screening:: None identified. Vital Signs: 03/31 16:18 BP 139 / 78; Pulse 76; Resp 18 S; Temp 97.7(O); Pulse Ox 98% on R/A; Weight 88.45 kg / gr2 195 lbs (R); Height 6 ft. 0 in. (182.88 cm) (R); Pain 5/10; 16:18 Body Mass Index 26.45 (88.45 kg, 182.88 cm) gr2 MDM: 16:53 Financial registration complete. [facility] 16:53 [facility] Payment Agreement was scanned into [employer] and attached to record. 04/01 17:35 T-Sheet-- Draft Copy was scanned into [employer] and attached to record. klr Signatures: Kayy Sharif RN RN Kamala Campos RN RN [facility] Desirae Honeycutt PA-C PA-C dt4 Sasha Marc, Reg Reg ks16 Meghana Carolina The chart was reviewed and I authenticate all verbal orders and agree with the evaluation and treatment provided.Attachments: 03/31 16:53 [facility] Payment Agreement 04/01 17:35 T-Sheet-- Draft Copy klr Chart Complete MTDD
== END 2016-03-31 17:09 | disposition home or self-care (01) ==
LOC: MERGE 16:16 → M ED 16:16
DX: N45.2 Orchitis (principal); N45.1 Epididymitis; F41.9 Anxiety disorder, unspecified; F32.9 Major depressive disorder, single episode, unspecified; G47.00 Insomnia, unspecified; Z79.899 Other long term (current) drug therapy

== ENCOUNTER 2016-04-13 15:35 | Emergency (ER) | payer OTHER ==
[~2016-04-13] VITALS: Ht 182.9 cm; Wt 87.4 kg
[~2016-04-13 15:35] MED LIST changes: -LEVO500T32 PO; -NAPR500T PO
[2016-04-13] MEDS ORDERED: LEVO500T32 PO (15:55)
[2016-04-13 17:14] VITALS: BP 157/73
[2016-04-13] MEDS ORDERED: NORCOTAB PO (17:48)
[2016-04-13] MEDS ORDERED: NAPR500T PO (17:48)
== END 2016-04-13 18:00 | disposition home or self-care (01) ==
LOC: M ED 16:57
DX: Z76.0 Encounter for issue of repeat prescription (principal); N45.1 Epididymitis; J45.909 Unspecified asthma, uncomplicated; K59.00 Constipation, unspecified; M19.90 Unspecified osteoarthritis, unspecified site; D64.9 Anemia, unspecified; F41.9 Anxiety disorder, unspecified; F32.9 Major depressive disorder, single episode, unspecified; G47.9 Sleep disorder, unspecified; R41.3 Other amnesia; M54.9 Dorsalgia, unspecified; Z79.899 Other long term (current) drug therapy; Z79.2 Long term (current) use of antibiotics

== ENCOUNTER → 2016-04-13 | Outpatient (REF) | payer OTHER ==
[~2016-04-13] MED LIST changes: +LEVO500T32 PO; +NAPR500T PO
== END ==
LOC: M SMT 16:55
PROVIDERS: ATTEND Nurse Practitioner Women's Health
DX: N45.3 Epididymo-orchitis (principal)

== ENCOUNTER 2017-01-27 03:07 | Emergency (ER) | payer OTHER ==
[~2017-01-27] VITALS: Ht 182.9 cm; Wt 83.2 kg
[~2017-01-27 03:07] MED LIST changes: +LEVO500T3 PO; +NAPR500T PO
[2017-01-27 03:08] VITALS: BP 148/87
[2017-01-27] MEDS ORDERED: ADDE20CA3 PO (03:23)
[2017-01-27] MEDS ORDERED: ZOFR4TAB3 PO (03:23)
[2017-01-27] MEDS ORDERED: NAPR500T PO (04:56)
== END 2017-01-27 05:11 | disposition home or self-care (01) ==
LOC: M ED 03:07
DX: M25.531 Pain in right wrist (principal)

== ENCOUNTER 2017-07-06 17:16 | Emergency (ER) | payer OTHER ==
[2017-07-06] MEDS: IBUPROFEN 600 MG TAB PO (18:00)
== END 2017-07-06 18:49 | disposition home or self-care (01) ==
LOC: M ED 17:16
DX: S60.221A Contusion of right hand, initial encounter (principal); W22.8XXA Striking against or struck by other objects, initial encounter; Y92.89 Other specified places as the place of occurrence of the external cause; J45.909 Unspecified asthma, uncomplicated; K21.9 Gastro-esophageal reflux disease without esophagitis; Z79.899 Other long term (current) drug therapy
CPT/HCPCS: 73130

== ENCOUNTER 2017-10-13 21:44 | Emergency (ER) | payer OTHER ==
[2017-10-13] MEDS: LIDOCAINE W/EPINEPHRINE 1% 20ML VIAL SC (23:57)
[2017-10-14] MEDS: ADACEL/BOOSTRIX VACCINE (DIPHTH/PERTUSS/ACELL/TETANUS)0.5ML SYR (90715) IM (00:15)
== END 2017-10-14 00:34 | disposition home or self-care (01) ==
LOC: M ED 10-14 00:34
DX: S61.412A Laceration without foreign body of left hand, initial encounter (principal); W25.XXXA Contact with sharp glass, initial encounter; Y92.89 Other specified places as the place of occurrence of the external cause; J45.909 Unspecified asthma, uncomplicated; K21.9 Gastro-esophageal reflux disease without esophagitis; M54.9 Dorsalgia, unspecified; F41.9 Anxiety disorder, unspecified; F32.9 Major depressive disorder, single episode, unspecified
CPT/HCPCS: 90715

== ENCOUNTER 2018-01-05 16:55 | Emergency (ER) | payer OTHER ==
[2018-01-05] MEDS: NS 1,000 ML IV (17:46)
[2018-01-05] MEDS: KETOROLAC 30 MG/ML VIAL (J1885) IV (17:46)
[2018-01-05] MEDS: diphenhydrAMINE INJ 50MG/ML VIAL (J1200) IV (17:47)
[2018-01-05] MEDS: METOCLOPRAMIDE INJ 10MG/2ML VIAL (J2765) IV (17:47)
== END 2018-01-05 18:52 | disposition home or self-care (01) ==
LOC: M ED 16:55
DX: R05 Cough (principal); G43.909 Migraine, unspecified, not intractable, without status migrainosus
CPT/HCPCS: J1200

== ENCOUNTER → 2018-01-11 | Outpatient (REF) | payer OTHER | LOC: M SFHCPLAZ 15:43 | DX: J02.9 Acute pharyngitis, unspecified (principal) ==

== ENCOUNTER → 2018-04-16 | Outpatient (CLI) | payer OTHER ==
[~2018-04-16] MED LIST changes: +ADDE20CA3 PO; +AMBI10TA PO; +BUSP10TA; +CEFD1CAP8; +DULO1CAP3; +FLUO10TA2; +IBUP80TA PO; +NAPR-50 PO; -NAPR500T PO; +PANT40TA3; +TESS100C PO; +ZOFR4TAB14 PO
--- NOTE | 2018-04-16 20:14 | ECGEPIP ---
Stationary ECG Study [facility] Test Date: 2018-04-16 Pat Name: KURT JORDAN Department: Room: - Gender: M Hand [employer]ter: RAY : 1990 Requested By: Lilly Rae Order Number: [id number] Reading MD: Rasta Ayala Measurements Intervals [place] Rate: 53 P: 60 AR: 160 QRS: 36 QRSD: 95 T: 67 QT: 387 QTc: 364 Interpretive Statements Sinus bradycardia Delayed anterior R-wave progression Early repolarization No comparison tracing available Electronically Signed On 04-16-2018 20:13:58 EDT by Rasta Ayala
== END ==
LOC: M EKG 16:01
PROVIDERS: ATTEND Nurse Practitioner Psychiatric/Mental Health
DX: R00.1 Bradycardia, unspecified (principal); F90.0 Attention-deficit hyperactivity disorder, predominantly inattentive type

== ENCOUNTER → 2018-06-01 | Outpatient (CLI) | payer OTHER ==
[~2018-06-01] MED LIST changes: +HYDR-3715 PO; -NAPR-50 PO; +NAPR-837 PO; -NORCOTAB PO
[2018-06-01 14:34] LABS: BASO % 0.7 % (0.0-1.0); EOS # 0.2 10^3/uL (0.0-0.50); EOS % 4.1 % (0.0-3.0); HEMATOCRIT 45.2 % (42.0-52.0); HEMOGLOBIN 15.9 g/dl (13.5-17.5); LYMPH # 1.4 10^3/uL (1.5-6.5); LYMPH % 24.5 % (24.0-44.0); MEAN CORPUSCULAR HEMOGLOBIN 30.6 pg (27.0-33.0); MEAN CORPUSCULAR HGB CONC 35.2 g/dl (32.0-36.5); MEAN CORPUSCULAR VOLUME 86.9 fl (80.0-96.0); MONO # 0.6 10^3/uL (0.0-0.8); MONO % 10.5 % (0.0-5.0); NEUTROPHILS # 3.5 10^3/uL (1.8-7.7); NEUTROPHILS % 59.9 % (36.0-66.0); PLATELET COUNT, AUTOMATED 279 10^3/uL (150-450); WHITE BLOOD COUNT 5.8 10^3/uL (4.0-10.0)
[2018-06-01 15:14] LABS: ALBUMIN 4.8 GM/DL (3.2-5.2); ALT/SGPT 31 U/L (12-78); BILIRUBIN,TOTAL 0.9 MG/DL (0.2-1.0); BLOOD UREA NITROGEN 8 MG/DL (7-18); CALCIUM LEVEL 9.4 MG/DL (8.5-10.1); CARBON DIOXIDE LEVEL 28 MEQ/L (21-32); CHLORIDE LEVEL 104 MEQ/L (98-107); CREATININE FOR GFR 0.74 MG/DL (0.70-1.30); FREE T4 1.27 NG/DL (0.76-1.46); GLOMERULAR FILTRATION RATE > 60.0 (>60); GLUCOSE, FASTING 87 MG/DL (70-100); LIPASE 89 U/L (73-393); POTASSIUM SERUM 3.9 MEQ/L (3.5-5.1); SODIUM LEVEL 139 MEQ/L (136-145); THYROID STIMULATING HORMONE 0.845 uIU/ML (0.358-3.740); TOTAL PROTEIN 8.3 GM/DL (6.4-8.2)
== END ==
LOC: M LAB 13:35
PROVIDERS: ATTEND Physician Assistant
DX: K92.1 Melena (principal); R10.84 Generalized abdominal pain; F41.8 Other specified anxiety disorders

== ENCOUNTER → 2018-06-19 | Outpatient (CLI) | payer OTHER ==
--- NOTE | 2018-06-22 09:31 | REP ---
Clinical: Bilateral knee pain. Technique: AP, lateral, bilateral oblique and sunrise views of the right and left knee. Findings: No acute fracture dislocation. Skeletal structures, joint spaces, and surrounding soft tissues are normal for age. No obvious congenital or arthritic degenerative changes noted. Impression: Normal, age-appropriate bilateral knee radiograph series. Electronically Signed by Devendra Chatterjee MD 06/20/2018 02:02 A
--- NOTE | 2018-06-22 09:36 | REP ---
Clinical: Constipation. Technique: Single supine view of the abdomen and pelvis. Findings: Bowel gas pattern is essentially normal/nonspecific. No organomegaly. Clips in the right lower quadrant suggest prior appendectomy. Skeletal structures intact. Impression: Nonspecific bowel gas pattern. Electronically Signed by Devendra Chatterjee MD 06/20/2018 02:19 A
== END ==
LOC: M RAD 10:39
PROVIDERS: ATTEND Physician Assistant
DX: M25.562 Pain in left knee (principal); M25.561 Pain in right knee; K59.00 Constipation, unspecified; R14.3 Flatulence

== ENCOUNTER → 2018-06-19 | Outpatient (CLI) | payer OTHER | LOC: M RAD 10:43 | PROVIDERS: ATTEND Nurse Practitioner Family | DX: Z53.9 Procedure and treatment not carried out, unspecified reason (principal); K59.00 Constipation, unspecified ==

== ENCOUNTER → 2018-07-03 | Outpatient (CLI) | payer OTHER ==
--- NOTE | 2018-07-03 11:30 | REP ---
BILATERAL KNEE SERIES: 10 views. HISTORY: Bilateral knee pain. COMPARISON STUDY: June 19, 2018. FINDINGS: Five views of each knee are presented. These demonstrate normal bones, joints, and soft tissues. No erosive changes seen. No evidence of joint effusion. There is a small bone island in the medial tibial plateau on the right unchanged from June 19, 2018 prior study. IMPRESSION: Normal radiographs of the knees bilaterally unchanged from the recent prior study of June 19, 2018. Electronically Signed by Jt Laughlin MD 07/03/2018 11:52 A
== END ==
LOC: M RAD 09:23
PROVIDERS: ATTEND Nurse Practitioner Family
DX: M25.562 Pain in left knee (principal); M25.561 Pain in right knee

== ENCOUNTER → 2018-09-14 | Outpatient (CLI) | payer OTHER ==
[~2018-09-14] MED LIST changes: +ALBU8.5H; +ARIP1TAB6; +CYCL5TAB PO; -DULO1CAP3; +DULO1CAP6; +KETO10TAB PO; +KLON0.5T; +OMEP-218; -OMEP40CA2 PO; +OMEP40CA97 PO; +VYVA20CA; +WELLTAB38
[2018-09-14 17:23] LABS: BASO # 0.1 10^3/uL (0.0-0.2); BASO % 0.9 % (0.0-1.0); EOS # 0.3 10^3/uL (0.0-0.50); EOS % 5.6 % (0.0-3.0); HEMATOCRIT 46.6 % (42.0-52.0); HEMOGLOBIN 16.3 g/dl (13.5-17.5); LYMPH # 1.2 10^3/uL (1.5-6.5); MEAN CORPUSCULAR HEMOGLOBIN 31.7 pg (27.0-33.0); MEAN CORPUSCULAR VOLUME 90.5 fl (80.0-96.0); MONO # 0.6 10^3/uL (0.0-0.8); MONO % 9.9 % (0.0-5.0); NEUTROPHILS # 3.5 10^3/uL (1.8-7.7); NEUTROPHILS % 62.2 % (36.0-66.0); PLATELET COUNT, AUTOMATED 263 10^3/uL (150-450); RED BLOOD COUNT 5.15 10^6/uL (4.30-6.10); WHITE BLOOD COUNT 5.7 10^3/uL (4.0-10.0)
[2018-09-14 17:43] LABS: C REACTIVE PROTEIN QUANTITATIV < 0.30 MG/DL (0.00-0.30); RHEUMATOID FACTOR QUANT < 10.0 IU/ML (<15.0); URIC ACID 5.6 MG/DL (3.5-7.2)
[2018-09-14 18:04] LABS: ERYTHROCYTE SEDIMENTATION RATE 2 mm/hr (0-15)
[2018-09-18 00:06] LABS: ANTINUCLEAR ANTIBODIES DIRECT Negative (Negative); Lyme Disease IgG/IgM Antibodie <0.91 ISR (0.00-0.90); Lyme Disease IgM Ab Quantitati <0.80 index (0.00-0.79)
== END ==
LOC: M LAB 16:52
PROVIDERS: ATTEND Orthopaedic Surgery
DX: M25.562 Pain in left knee (principal)

== ENCOUNTER 2018-12-05 12:00 | Outpatient (RCR) | payer OTHER ==
[~2018-12-05 12:00] MED LIST changes: -ALBU8.5H; -ARIP1TAB6; -CYCL5TAB PO; -KETO10TAB PO; -KLON0.5T; -OMEP-218; -VYVA20CA; -WELLTAB38
== END 2018-12-06 ==
LOC: M PT 12:00
PROVIDERS: ATTEND Orthopaedic Surgery
DX: M25.561 Pain in right knee (principal); M25.562 Pain in left knee

== ENCOUNTER 2018-12-26 12:00 | Outpatient (RCR) | payer OTHER | END 2019-01-05 | LOC: M PT 12:00 | PROVIDERS: ATTEND Orthopaedic Surgery | DX: M25.561 Pain in right knee (principal); M25.562 Pain in left knee ==

== ENCOUNTER 2019-01-09 15:04 | Outpatient (RCR) | payer OTHER | END 2019-02-05 | LOC: M PT 15:04 | PROVIDERS: ATTEND Orthopaedic Surgery | DX: M25.561 Pain in right knee (principal); M25.562 Pain in left knee ==

== ENCOUNTER 2019-02-13 09:13 | Emergency (ER) | payer OTHER ==
[~2019-02-13] VITALS: Ht 182.9 cm; Wt 89.8 kg
[2019-02-13] MEDS ORDERED: KLON0.5T (09:20)
[2019-02-13] MEDS ORDERED: VYVA20CA (09:20)
[2019-02-13] MEDS ORDERED: ARIP1TAB6 (09:20)
[2019-02-13] MEDS ORDERED: OMEP-218 (09:20)
[2019-02-13] MEDS ORDERED: WELLTAB38 (09:20)
[2019-02-13] MEDS ORDERED: ALBU8.5H (09:20)
[2019-02-13 10:09] LABS: INFLUENZA A AMPLIFICATION NEGATIVE (NEGATIVE); INFLUENZA B AMPLIFICATION NEGATIVE (NEGATIVE)
[2019-02-13] MEDS ORDERED: KETOROLAC 60 MG/2 ML VIAL (J1885) IM ONE (10:15)
[2019-02-13] MEDS ORDERED: ALBUTEROL SULFATE 2.5 MG/0.5 ML INH NEB SOLN NEB ONE (10:15)
[2019-02-13] MEDS ORDERED: CYCLOBENZAPRINE 10 MG TAB PO ONE (10:15)
--- NOTE | 2019-02-13 10:42 | REP ---
CHEST, TWO VIEWS: There is no evidence of acute infiltrate. No pleural effusion is seen. The heart is normal in size. The mediastinal silhouette is unremarkable. The visualized osseous structures are intact. IMPRESSION: No acute pulmonary disease. Electronically Signed by Arnaldo Perrin MD 02/13/2019 08:01 P
[2019-02-13] MEDS ORDERED: CYCL5TAB PO (11:15)
[2019-02-13] MEDS ORDERED: KETO10TAB PO (11:15)
[2019-02-13 11:23] VITALS: BP 122/83
== END 2019-02-13 11:38 | disposition home or self-care (01) ==
LOC: M ED 09:13
DX: J20.9 Acute bronchitis, unspecified (principal); M54.5 Low back pain; F33.9 Major depressive disorder, recurrent, unspecified; F41.9 Anxiety disorder, unspecified; F90.9 Attention-deficit hyperactivity disorder, unspecified type; K21.9 Gastro-esophageal reflux disease without esophagitis; Z79.899 Other long term (current) drug therapy
CPT/HCPCS: 71046; 87631; 94640; 96372; 99283; J1885

== ENCOUNTER 2019-08-08 08:35 | Emergency (ER) | payer OTHER ==
[~2019-08-08] VITALS: Ht 182.9 cm; Wt 95.6 kg
[~2019-08-08 08:35] MED LIST changes: +ALBU8.5H; +ARIP1TAB6; +CYCL5TAB PO; +KETO10TAB PO; +KLON0.5T; +OMEP-218; +PANT40TA29; -PANT40TA3; +VYVA20CA; +WELLTAB38
[2019-08-08] MEDS ORDERED: BENZ-52 (08:43)
[2019-08-08] MEDS ORDERED: AMPH1CAP16 (08:43)
[2019-08-08] MEDS ORDERED: AMPHET/DEXTR (08:43)
--- NOTE | 2019-08-08 09:45 | REP ---
Clinical: Left lower quadrant pain. Technique: Single supine view of the abdomen and pelvis. Findings: Clips in the right lower quadrant suggest prior appendectomy. Bowel gas pattern is nonspecific. No organomegaly. No abnormal calcifications. No obvious obstruction or perforation. Skeletal structures intact. Impression: Nonspecific abdominal radiograph. Electronically Signed by Devendra Chatterjee MD 08/08/2019 09:36 A
[2019-08-08 09:49] LABS: BASO # 0.1 10^3/uL (0.0-0.2); EOS # 0.2 10^3/uL (0.0-0.5); EOS % 4.5 % (0.0-3.0); HEMATOCRIT 40.7 % (42.0-52.0); HEMOGLOBIN 14.2 g/dl (13.5-17.5); LYMPH # 1.2 10^3/uL (1.5-5.0); LYMPH % 22.6 % (24.0-44.0); MEAN CORPUSCULAR HEMOGLOBIN 31.1 pg (27.0-33.0); MEAN CORPUSCULAR HGB CONC 34.9 g/dl (32.0-36.5); MEAN CORPUSCULAR VOLUME 89.1 fl (80.0-96.0); MONO # 0.5 10^3/uL (0.0-0.8); MONO % 9.5 % (0.0-5.0); NEUTROPHILS # 3.2 10^3/uL (1.5-8.5); NEUTROPHILS % 62.2 % (36.0-66.0); PLATELET COUNT, AUTOMATED 274 10^3/uL (150-450); RED BLOOD COUNT 4.57 10^6/uL (4.30-6.10); WHITE BLOOD COUNT 5.1 10^3/uL (4.0-10.0)
[2019-08-08 09:58] LABS: APPEARANCE, URINE CLEAR (CLEAR); BACTERIA, URINE AUTO NEGATIVE (NEGATIVE); BILIRUBIN, URINE AUTO NEGATIVE (NEGATIVE); BLOOD, URINE BLOOD NEGATIVE (NEGATIVE); COLOR, URINE YELLOW (YELLOW); GLUCOSE, URINE (UA) AUTO NEGATIVE (NEGATIVE); KETONE, URINE AUTO NEGATIVE (NEGATIVE); LEUKOCYTE ESTERASE, URINE AUTO NEGATIVE (NEGATIVE); MUCUS, URINE SMALL (NEGATIVE); NITRITE, URINE AUTO NEGATIVE (NEGATIVE); PROTEIN, URINE AUTO NEGATIVE (NEGATIVE); RBC, URINE AUTO 2 /HPF (0-3); SPECIFIC GRAVITY URINE AUTO 1.016 (1.002-1.035); SQUAMOUS EPITHELIAL CELL UR AU 0 /HPF (0-6); UROBILINOGEN, URINE AUTO 0.2 mg/dL (0.0-2.0); WBC, URINE AUTO 0 /HPF (0-3)
[2019-08-08 10:08] LABS: BLOOD UREA NITROGEN 7 MG/DL (7-18); CALCIUM LEVEL 8.9 MG/DL (8.5-10.1); CARBON DIOXIDE LEVEL 29 MEQ/L (21-32); CHLORIDE LEVEL 107 MEQ/L (98-107); CREATININE FOR GFR 0.83 MG/DL (0.70-1.30); GLOMERULAR FILTRATION RATE > 60.0 (>60); GLUCOSE, FASTING 84 MG/DL (70-100); POTASSIUM SERUM 3.9 MEQ/L (3.5-5.1); SODIUM LEVEL 141 MEQ/L (136-145)
[2019-08-08 10:45] VITALS: BP 126/80
[2019-08-08] MEDS ORDERED: MIRA3350 PO (10:45)
== END 2019-08-08 10:50 | disposition home or self-care (01) ==
LOC: M ED 08:35
DX: R10.32 Left lower quadrant pain (principal)

== ENCOUNTER 2020-07-24 01:28 | Emergency (ER) | payer OTHER ==
[~2020-07-24] VITALS: Ht 182.9 cm; Wt 103.5 kg
[~2020-07-24 01:28] MED LIST changes: +AMPH1CAP16; +AMPHET/DEXTR; +BENZ-52; +MIRA3350 PO; +OMEP40CA4 PO; -OMEP40CA97 PO
[2020-07-24] MEDS ORDERED: PERCOCET 5MG/325MG TAB PO ONE (06:55)
[2020-07-24] MEDS ORDERED: PENICILLIN V POTASSIUM 500 MG TAB PO ONE (06:55)
[2020-07-24] MEDS ORDERED: PENI500T PO (06:56)
[2020-07-24] MEDS ORDERED: HYDR-3713 PO (06:57)
[2020-07-24 07:09] VITALS: BP 143/89
== END 2020-07-24 07:35 | disposition home or self-care (01) ==
LOC: M ED 01:28
DX: K03.81 Cracked tooth (principal); F41.9 Anxiety disorder, unspecified; F33.9 Major depressive disorder, recurrent, unspecified; F17.200 Nicotine dependence, unspecified, uncomplicated; Z79.899 Other long term (current) drug therapy

== ENCOUNTER 2020-08-09 02:53 | Emergency (ER) | payer OTHER ==
[~2020-08-09] VITALS: Ht 182.9 cm; Wt 104.1 kg
[~2020-08-09 02:53] MED LIST changes: +HYDR-3713 PO; +PENI500T PO
[2020-08-09 02:54] VITALS: BP 146/93
[2020-08-09] MEDS ORDERED: BUSP10TA PO (03:02)
[2020-08-09] MEDS ORDERED: ABIL400I PO (03:02)
== END 2020-08-09 05:58 | disposition left against medical advice (07) ==
LOC: M ED 02:53
DX: Z53.29 Procedure and treatment not carried out because of patient's decision for other reasons (principal)

== ENCOUNTER → 2021-01-21 | Outpatient (CLI) | payer OTHER ==
[~2021-01-21] MED LIST changes: +ABIL400I PO; +BUSP10TA PO
[2021-01-21 10:40] LABS: APPEARANCE, URINE CLEAR (CLEAR); BACTERIA, URINE AUTO NEGATIVE (NEGATIVE); BILIRUBIN, URINE AUTO NEGATIVE (NEGATIVE); BLOOD, URINE BLOOD NEGATIVE (NEGATIVE); COLOR, URINE YELLOW (YELLOW); GLUCOSE, URINE (UA) AUTO NEGATIVE (NEGATIVE); KETONE, URINE AUTO NEGATIVE (NEGATIVE); LEUKOCYTE ESTERASE, URINE AUTO NEGATIVE (NEGATIVE); MUCUS, URINE SMALL (NEGATIVE); NITRITE, URINE AUTO NEGATIVE (NEGATIVE); PROTEIN, URINE AUTO NEGATIVE (NEGATIVE); RBC, URINE AUTO 0 /HPF (0-3); SPECIFIC GRAVITY URINE AUTO 1.017 (1.002-1.035); SQUAMOUS EPITHELIAL CELL UR AU 0 /HPF (0-6); UROBILINOGEN, URINE AUTO 0.2 mg/dL (0.0-2.0); WBC, URINE AUTO 0 /HPF (0-3)
[2021-01-21 10:45] LABS: BASO # 0.1 10^3/uL (0.0-0.2); BASO % 1.1 % (0.0-1.0); EOS # 0.3 10^3/uL (0.0-0.5); EOS % 6.3 % (0.0-3.0); HEMATOCRIT 43.8 % (42.0-52.0); HEMOGLOBIN 14.6 g/dl (13.5-17.5); LYMPH # 1.3 10^3/uL (1.5-5.0); LYMPH % 24.9 % (24.0-44.0); MEAN CORPUSCULAR HEMOGLOBIN 30.2 pg (27.0-33.0); MEAN CORPUSCULAR HGB CONC 33.3 g/dl (32.0-36.5); MEAN CORPUSCULAR VOLUME 90.7 fl (80.0-96.0); MONO # 0.5 10^3/uL (0.0-0.8); MONO % 8.8 % (2.0-8.0); NEUTROPHILS # 3.1 10^3/uL (1.5-8.5); NEUTROPHILS % 58.7 % (36.0-66.0); PLATELET COUNT, AUTOMATED 293 10^3/uL (150-450); RED BLOOD COUNT 4.83 10^6/uL (4.30-6.10); WHITE BLOOD COUNT 5.2 10^3/uL (4.0-10.0)
[2021-01-21 11:20] LABS: CHOLESTEROL RISK RATIO 5.793 (<5); THYROID STIMULATING HORMONE 0.588 uIU/ML (0.358-3.740)
[2021-01-21 11:21] LABS: TOTAL 25(OH) VITAMIN D 17.7 NG/ML (30.0-100.0)
[2021-01-21 11:22] LABS: HEMOGLOBIN A1c 4.9 %
== END ==
LOC: M LAB 09:35
PROVIDERS: ATTEND Nurse Practitioner Family
DX: Z13.1 Encounter for screening for diabetes mellitus (principal)

== ENCOUNTER → 2021-02-02 | Outpatient (CLI) | payer OTHER | LOC: M RAD 12:27 | PROVIDERS: ATTEND Nurse Practitioner Family | DX: R39.15 Urgency of urination (principal); Z53.8 Procedure and treatment not carried out for other reasons ==

== ENCOUNTER → 2021-03-22 | Outpatient (CLI) | payer OTHER ==
[~2021-03-22] MED LIST changes: -CEFD1CAP8; +CEFD300C41; -LEVO500T3 PO; +LEVO500T4 PO; +OMEP-173; -OMEP-218
== END ==
LOC: M PLAIMG 11:48
PROVIDERS: ATTEND Internal Medicine
DX: M25.50 Pain in unspecified joint (principal)

== ENCOUNTER 2021-05-23 17:57 | Emergency (ER) | payer OTHER ==
[~2021-05-23] VITALS: Ht 182.9 cm; Wt 104.5 kg
[2021-05-23 17:58] VITALS: BP 117/67
[2021-05-23] MEDS ORDERED: CLON0.5T2 (18:06)
[2021-05-23] MEDS ORDERED: LEXA1TAB2 (18:07)
[2021-05-23] MEDS ORDERED: IPRATROPIUM 0.5MG/ALBUTEROL 2.5MG INH SOL UD 3ML (DUONEB) NEB ONE (20:05)
[2021-05-23] MEDS ORDERED: CLEV1MIS25 XX (20:07)
[2021-05-23] MEDS ORDERED: ALBU83IN NEB (20:08)
== END 2021-05-23 20:47 | disposition home or self-care (01) ==
LOC: M ED 17:57
DX: J45.901 Unspecified asthma with (acute) exacerbation (principal); Z11.52 Encounter for screening for COVID-19; F31.9 Bipolar disorder, unspecified; F43.10 Post-traumatic stress disorder, unspecified; F84.0 Autistic disorder; F42.9 Obsessive-compulsive disorder, unspecified; K21.9 Gastro-esophageal reflux disease without esophagitis; G89.29 Other chronic pain; M54.50 Low back pain, unspecified; F17.200 Nicotine dependence, unspecified, uncomplicated; Z79.51 Long term (current) use of inhaled steroids; Z79.899 Other long term (current) drug therapy

== ENCOUNTER → 2021-05-27 | Outpatient (REF) | payer OTHER ==
[~2021-05-27] MED LIST changes: +ALBU83IN NEB; +CLEV1MIS25 XX; +CLON0.5T2; +LEXA1TAB2
== END ==
LOC: M SFHCPLAZ 16:45
PROVIDERS: ATTEND Physician Assistant
DX: R05.9 Cough, unspecified (principal)

== ENCOUNTER 2021-10-26 06:27 | Emergency (ER) | payer OTHER ==
[~2021-10-26] VITALS: Ht 182.9 cm; Wt 113.6 kg
[~2021-10-26 06:27] MED LIST changes: +ALBU2.5V10 NEB; -ALBU83IN NEB; +LEVO1TAB39 PO; -LEVO500T4 PO; -WELLTAB38; +WELLTAB38 PO
[2021-10-26] MEDS ORDERED: BENZONATATE 100MG CAPSULE PO ONE (07:50)
[2021-10-26] MEDS ORDERED: ACETAMINOPHEN 325 MG TAB PO ONE (07:50)
[2021-10-26] MEDS ORDERED: ABIL1INJ2 IM (08:34)
[2021-10-26] MEDS ORDERED: CLON1TAB8 (08:34)
[2021-10-26] MEDS ORDERED: CYMB1CAP5 PO (08:34)
[2021-10-26] MEDS ORDERED: OMEP40CA5 (08:34)
[2021-10-26] MEDS ORDERED: BENZ200C70 PO (08:50)
[2021-10-26 09:01] VITALS: BP 128/85
== END 2021-10-26 09:03 | disposition home or self-care (01) ==
LOC: M ED 06:27
DX: J20.9 Acute bronchitis, unspecified (principal); G44.209 Tension-type headache, unspecified, not intractable; J45.909 Unspecified asthma, uncomplicated; F90.9 Attention-deficit hyperactivity disorder, unspecified type; K21.9 Gastro-esophageal reflux disease without esophagitis; M54.50 Low back pain, unspecified; F84.0 Autistic disorder; F31.9 Bipolar disorder, unspecified; F43.10 Post-traumatic stress disorder, unspecified; Z90.89 Acquired absence of other organs; Z79.51 Long term (current) use of inhaled steroids; Z79.899 Other long term (current) drug therapy

== ENCOUNTER 2021-10-28 05:35 | Emergency (ER) | payer OTHER ==
[~2021-10-28] VITALS: Ht 182.9 cm; Wt 112.9 kg
[~2021-10-28 05:35] MED LIST changes: +ABIL1INJ2 IM; +BENZ200C70 PO; +CLON1TAB8; +CYMB1CAP5 PO; +OMEP40CA5
[2021-10-28] MEDS ORDERED: ACETAMINOPHEN 500 MG TAB PO ONE (07:55)
[2021-10-28] MEDS ORDERED: KETOROLAC 30 MG/ML 1ML VIAL IM ONE (07:55)
[2021-10-28] MEDS ORDERED: CYCLOBENZAPRINE 5MG TABLET PO ONE (07:55)
[2021-10-28] MEDS ORDERED: CYCL5TAB PO (09:15)
[2021-10-28 09:37] VITALS: BP 126/84
== END 2021-10-28 09:40 | disposition home or self-care (01) ==
LOC: M ED 05:35
DX: S16.1XXA Strain of muscle, fascia and tendon at neck level, initial encounter (principal); J45.909 Unspecified asthma, uncomplicated; F90.9 Attention-deficit hyperactivity disorder, unspecified type; Z90.89 Acquired absence of other organs; Z79.51 Long term (current) use of inhaled steroids; Z79.899 Other long term (current) drug therapy
CPT/HCPCS: 72052; 96372; 99283; J1885

== ENCOUNTER → 2022-05-03 | Outpatient (REF) ==
[~2022-05-03] MED LIST changes: -BENZ-52; +BENZ1TAB5; -FLUO10TA2; +FLUO1TAB
== END ==
LOC: M PLALAB 12:23
PROVIDERS: ATTEND Internal Medicine
DX: Z00.00 Encounter for general adult medical examination without abnormal findings (principal)

== ENCOUNTER → 2022-07-05 | Outpatient (CLI) | payer OTHER | LOC: M SLEEP HO 05-04 11:07 | PROVIDERS: ATTEND Physician Assistant | DX: G47.33 Obstructive sleep apnea (adult) (pediatric) (principal) ==

== ENCOUNTER → 2022-09-05 | Outpatient (CLI) | payer OTHER | LOC: M SOG 07:59 | PROVIDERS: ATTEND Orthopaedic Surgery | DX: M25.561 Pain in right knee (principal); M25.562 Pain in left knee ==

== ENCOUNTER 2022-09-26 23:24 | Emergency (ER) | payer OTHER ==
[~2022-09-26] VITALS: Ht 182.9 cm; Wt 113.6 kg
[2022-09-26 23:24] VITALS: BP 124/86; TEMP 99.7; O2SAT 97
== END 2022-09-26 23:46 | disposition left against medical advice (07) ==
LOC: M ED 23:24
DX: Z53.21 Procedure and treatment not carried out due to patient leaving prior to being seen by health care provider (principal)

== ENCOUNTER 2023-05-06 11:44 | Emergency (ER) | payer OTHER ==
[~2023-05-06] VITALS: Ht 182.9 cm; Wt 95.8 kg
[~2023-05-06 11:44] MED LIST changes: +CEFD1CAP9; -CEFD300C41; -KLON0.5T; +KLON0.5T8
[2023-05-06] MEDS ORDERED: PERI12LIQ (11:50)
[2023-05-06] MEDS ORDERED: LIDO15SO8 (11:50)
[2023-05-06 12:23] LABS: BASO % 0.9 % (0.0-1.0); EOS # 0.2 10^3/uL (0.0-0.5); EOS % 4.3 % (0.0-3.0); HEMATOCRIT 41.1 % (42.0-52.0); HEMOGLOBIN 14.3 g/dl (13.5-17.5); LYMPH # 0.8 10^3/uL (1.5-5.0); LYMPH % 16.3 % (24.0-44.0); MEAN CORPUSCULAR HEMOGLOBIN 30.5 pg (27.0-33.0); MEAN CORPUSCULAR HGB CONC 34.8 g/dl (32.0-36.5); MEAN CORPUSCULAR VOLUME 87.6 fl (80.0-96.0); MONO # 0.5 10^3/uL (0.0-0.8); MONO % 10.2 % (2.0-8.0); NEUTROPHILS # 3.1 10^3/uL (1.5-8.5); NEUTROPHILS % 67.9 % (36.0-66.0); PLATELET COUNT, AUTOMATED 227 10^3/uL (150-450); RED BLOOD COUNT 4.69 10^6/uL (4.30-6.10); WHITE BLOOD COUNT 4.6 10^3/uL (4.0-10.0)
[2023-05-06 12:24] LABS: ERYTHROCYTE SEDIMENTATION RATE 41 mm/hr (0-15)
[2023-05-06] MEDS: KETOROLAC 30 MG/ML 1ML VIAL IV ONE (12:35)
[2023-05-06 12:44] LABS: C REACTIVE PROTEIN QUANTITATIV 14.5 MG/DL (<1.0)
[2023-05-06] MEDS ORDERED: ISOVUE-370 76% 100ML VIAL As Ordered ONE (13:02)
[2023-05-06 13:27] LABS: CK-MB VALUE MASS 3.2 NG/ML (<3.6)
[2023-05-06 13:28] LABS: MB/CK RELATIVE INDEX 0.4 (< OR =4)
[2023-05-06] MEDS: BENZOCAINE 20% GEL 9GM TUBE (ANBESOL MAX STRENGTH) TOP ONE (13:31)
[2023-05-06] MEDS: NS 1,000 ML IV ONE (13:58)
[2023-05-06] MEDS ORDERED: KETO10TAB PO (14:42)
[2023-05-06] MEDS ORDERED: AMOX875T2 PO (14:42)
[2023-05-06] MEDS: AMPICILLIN SOD/SULBACTAM SOD 3 GM in D5W MINI-BAG PLUS 100 ML IV ONE (14:56)
[2023-05-06] MEDS: MORPHINE 4 MG/ML 1ML VIAL IV ONE (14:57)
[2023-05-06 16:30] VITALS: BP 162/78; TEMP 98.3; O2SAT 98
== END 2023-05-06 16:30 | disposition home or self-care (01) ==
LOC: M ED 11:44
DX: K04.7 Periapical abscess without sinus (principal); R00.0 Tachycardia, unspecified; F84.0 Autistic disorder; F90.9 Attention-deficit hyperactivity disorder, unspecified type; F42.9 Obsessive-compulsive disorder, unspecified; F43.10 Post-traumatic stress disorder, unspecified; F31.9 Bipolar disorder, unspecified; Z79.51 Long term (current) use of inhaled steroids; Z79.2 Long term (current) use of antibiotics; Z79.899 Other long term (current) drug therapy
CPT/HCPCS: 70487; 71046; 80047; 82550; 82553; 85025; 85652; 86140; 87040; 93005; 93971; 96361; 96365; 96366; 96374; 96375; 99284; J0295; J1885; Q9967

== ENCOUNTER 2023-05-23 13:33 | Emergency (ER) | payer OTHER ==
[~2023-05-23] VITALS: Ht 177.8 cm; Wt 112.3 kg
[~2023-05-23 13:33] MED LIST changes: +AMOX875T2 PO; +LIDO15SO8; +PERI12LIQ
[2023-05-23] MEDS ORDERED: CLIN-30 (14:12)
[2023-05-23] MEDS ORDERED: AMPH1CAP5 (14:12)
[2023-05-23] MEDS ORDERED: LAMO25TA4 (14:12)
[2023-05-23] MEDS ORDERED: DULO1CAP5 (14:12)
[2023-05-23] MEDS ORDERED: CYMB60CA4 (14:12)
[2023-05-23] MEDS ORDERED: ARIP1TAB10 (14:12)
[2023-05-23 15:18] LABS: BASO # 0.1 10^3/uL (0.0-0.2); BASO % 1.1 % (0.0-1.0); EOS # 0.3 10^3/uL (0.0-0.5); EOS % 3.4 % (0.0-3.0); HEMATOCRIT 46.6 % (42.0-52.0); HEMOGLOBIN 15.8 g/dl (13.5-17.5); LYMPH # 1.4 10^3/uL (1.5-5.0); LYMPH % 19.1 % (24.0-44.0); MEAN CORPUSCULAR HEMOGLOBIN 30.3 pg (27.0-33.0); MEAN CORPUSCULAR HGB CONC 33.9 g/dl (32.0-36.5); MEAN CORPUSCULAR VOLUME 89.3 fl (80.0-96.0); MONO # 0.6 10^3/uL (0.0-0.8); MONO % 7.7 % (2.0-8.0); NEUTROPHILS # 5.1 10^3/uL (1.5-8.5); NEUTROPHILS % 68.4 % (36.0-66.0); PLATELET COUNT, AUTOMATED 396 10^3/uL (150-450); RED BLOOD COUNT 5.22 10^6/uL (4.30-6.10); WHITE BLOOD COUNT 7.4 10^3/uL (4.0-10.0)
[2023-05-23 15:44] LABS: LIPASE 36 U/L (12-53)
[2023-05-23 15:47] LABS: ALBUMIN 4.6 G/DL (3.2-5.2); ALKALINE PHOSPHATASE 80 U/L (46-116); ALT/SGPT 78 U/L (7.0-40); AST/SGOT 40 U/L (<34); BILIRUBIN,DIRECT 0.3 MG/DL (<0.4); BILIRUBIN,TOTAL 1.1 MG/DL (0.3-1.2); BLOOD UREA NITROGEN 9 MG/DL (9-23); CALCIUM LEVEL 10.4 MG/DL (8.5-10.1); CARBON DIOXIDE LEVEL 27 MMOL/L (20-31); CHLORIDE LEVEL 103 MMOL/L (98-107); CREATININE FOR GFR 0.93 MG/DL (0.70-1.30); GLOMERULAR FILTRATION RATE > 60.0 (>60); GLUCOSE, FASTING 96 MG/DL (60-100); SODIUM LEVEL 137 MMOL/L (136-145); TOTAL PROTEIN 8.5 G/DL (5.7-8.2)
[2023-05-23 17:38] LABS: INR 0.99; PARTIAL THROMBOPLASTIN TIME 27.3 SECONDS (24.8-34.2); PROTHROMBIN TIME 12.8 SECONDS (12.5-14.5)
[2023-05-23] MEDS ORDERED: ISOVUE-370 76% 100ML VIAL As Ordered ONE (19:05)
[2023-05-23] MEDS: ACETAMINOPHEN *IV* 1,000 MG in IV 1 EA IV ONE (19:09)
[2023-05-23] MEDS ORDERED: PROT1TAB2 PO (20:35)
[2023-05-23] MEDS ORDERED: CARA1TAB6 PO (20:35)
[2023-05-23 21:03] VITALS: BP 147/78; TEMP 97.9; O2SAT 98
== END 2023-05-23 21:30 | disposition home or self-care (01) ==
LOC: M ED 13:33
DX: K92.2 Gastrointestinal hemorrhage, unspecified (principal); T39.395A Adverse effect of other nonsteroidal anti-inflammatory drugs [NSAID], initial encounter; K21.9 Gastro-esophageal reflux disease without esophagitis; J45.909 Unspecified asthma, uncomplicated; F12.10 Cannabis abuse, uncomplicated; F84.0 Autistic disorder; Z79.51 Long term (current) use of inhaled steroids; Z79.899 Other long term (current) drug therapy
CPT/HCPCS: 74177; 80048; 80076; 83690; 85025; 85610; 85730; 86850; 86900; 86901; 96365; 99284; J0131; Q9967

== ENCOUNTER → 2023-10-01 | Outpatient (CLI) | payer OTHER ==
[~2023-10-01] MED LIST changes: +AMPH1CAP5; +ARIP1TAB10; +CARA1TAB6 PO; +CLIN-30; +CYMB60CA4; +DULO1CAP5; +LAMO25TA4; +PROT1TAB2 PO
[2023-10-01 12:50] LABS: BASO # 0.1 10^3/uL (0.0-0.2); BASO % 0.9 % (0.0-1.0); EOS # 0.5 10^3/uL (0.0-0.5); HEMATOCRIT 43.5 % (42.0-52.0); HEMOGLOBIN 15.2 g/dl (13.5-17.5); LYMPH # 2.2 10^3/uL (1.5-5.0); LYMPH % 28.1 % (24.0-44.0); MEAN CORPUSCULAR HGB CONC 34.9 g/dl (32.0-36.5); MONO # 0.7 10^3/uL (0.0-0.8); MONO % 9.1 % (2.0-8.0); NEUTROPHILS # 4.3 10^3/uL (1.5-8.5); NEUTROPHILS % 55.8 % (36.0-66.0); PLATELET COUNT, AUTOMATED 289 10^3/uL (150-450); RED BLOOD COUNT 5.06 10^6/uL (4.30-6.10); WHITE BLOOD COUNT 7.7 10^3/uL (4.0-10.0)
[2023-10-01 13:11] LABS: HEMOGLOBIN A1c 4.9 % (4.0-6.0)
[2023-10-01 13:19] LABS: IRON (FE) 91 UG/DL (65-175); PERCENT SATURATION 23.8 % (19.7-50.0); TOTAL IRON BINDING CAPACITY 383 UG/DL (250-425)
[2023-10-01 13:21] LABS: ALBUMIN 4.2 G/DL (3.2-5.2); ALKALINE PHOSPHATASE 61 U/L (46-116); ALT/SGPT 58 U/L (7.0-40); AST/SGOT 22 U/L (<34); BILIRUBIN,TOTAL 0.7 MG/DL (0.3-1.2); BLOOD UREA NITROGEN 11 MG/DL (9-23); CARBON DIOXIDE LEVEL 28 MMOL/L (20-31); CHLORIDE LEVEL 106 MMOL/L (98-107); CHOLESTEROL LEVEL 168 MG/DL (<200); CHOLESTEROL RISK RATIO 5.58 (<5); FREE T4 1.53 NG/DL (0.89-1.76); GLOMERULAR FILTRATION RATE > 60.0 (>60); GLUCOSE, FASTING 115 MG/DL (60-100); HDL CHOLESTEROL 30.1 MG/DL (>40); LDL CHOLESTEROL 84.3 MG/DL (<100); NON-HDL-C 137.9 MG/DL; POTASSIUM SERUM 3.5 MMOL/L (3.5-5.1); SODIUM LEVEL 139 MMOL/L (136-145); THYROID STIMULATING HORMONE 3.931 uIU/ML (0.55-4.78); TOTAL PROTEIN 7.2 G/DL (5.7-8.2); TRIGLYCERIDES LEVEL 268 MG/DL (<150)
== END ==
LOC: M LAB 12:29
PROVIDERS: ATTEND Nurse Practitioner Family
DX: R21 Rash and other nonspecific skin eruption (principal); M79.89 Other specified soft tissue disorders

== ENCOUNTER 2024-01-28 05:29 | Emergency (ER) | payer OTHER ==
[~2024-01-28] VITALS: Ht 182.9 cm; Wt 105.5 kg
[~2024-01-28 05:29] MED LIST changes: -CYCL5TAB PO; +CYCL5TAB4 PO
[2024-01-28 05:34] VITALS: TEMP 97.9
[2024-01-28 08:15] VITALS: BP 137/85
[2024-01-28] MEDS ORDERED: DOXY-441 PO (08:44)
[2024-01-28] MEDS ORDERED: MUPI30CR TOP (08:44)
[2024-01-28] MEDS ORDERED: BENZ200C70 PO (08:44)
[2024-01-28 08:45] VITALS: O2SAT 97
== END 2024-01-28 08:53 | disposition home or self-care (01) ==
LOC: M ED 05:29
DX: L01.00 Impetigo, unspecified (principal); R05.9 Cough, unspecified; J45.909 Unspecified asthma, uncomplicated; F43.10 Post-traumatic stress disorder, unspecified; F31.9 Bipolar disorder, unspecified; F84.0 Autistic disorder; F90.9 Attention-deficit hyperactivity disorder, unspecified type; F12.10 Cannabis abuse, uncomplicated; Z79.51 Long term (current) use of inhaled steroids; Z79.899 Other long term (current) drug therapy

== ENCOUNTER 2024-02-01 12:16 | Emergency (ER) | payer OTHER ==
[~2024-02-01 12:16] MED LIST changes: +DOXY-441 PO; +MUPI30CR TOP
== END 2024-02-01 12:36 | disposition left against medical advice (07) ==
LOC: M ED 12:16
DX: Z53.21 Procedure and treatment not carried out due to patient leaving prior to being seen by health care provider (principal)

== ENCOUNTER 2024-04-02 22:55 | Emergency (ER) | payer OTHER ==
[~2024-04-02] VITALS: Ht 182.9 cm; Wt 107.2 kg
[2024-04-02 22:58] VITALS: BP 122/72; TEMP 97.2; O2SAT 95
== END 2024-04-03 03:35 | disposition left against medical advice (07) ==
LOC: M ED 22:55
DX: Z53.21 Procedure and treatment not carried out due to patient leaving prior to being seen by health care provider (principal)

== ENCOUNTER 2024-04-10 16:55 | Emergency (ER) | payer OTHER ==
[~2024-04-10] VITALS: Ht 182.9 cm; Wt 108.0 kg
[2024-04-10 16:57] VITALS: BP 127/70; TEMP 97.3; O2SAT 99
[2024-04-11] MEDS ORDERED: BACTDSTA (09:41)
[2024-04-11] MEDS ORDERED: DOXY-441 PO (11:41)
[2024-04-11] MEDS ORDERED: MUPI30CR TOP (11:41)
== END 2024-04-10 18:30 | disposition left against medical advice (07) ==
LOC: M ED 16:55
DX: Z53.21 Procedure and treatment not carried out due to patient leaving prior to being seen by health care provider (principal)

== ENCOUNTER 2024-04-11 09:31 | Emergency (ER) | payer OTHER ==
[~2024-04-11] VITALS: Ht 182.9 cm; Wt 107.6 kg
[2024-04-11 09:37] VITALS: TEMP 97.8
[2024-04-11] MEDS ORDERED: BACTDSTA (09:41)
[2024-04-11 11:38] VITALS: BP 127/71; O2SAT 98
[2024-04-11] MEDS ORDERED: MUPI30CR TOP (11:41)
[2024-04-11] MEDS ORDERED: DOXY-441 PO (11:41)
== END 2024-04-11 11:59 | disposition home or self-care (01) ==
LOC: M ED 09:31
DX: L01.00 Impetigo, unspecified (principal); J45.909 Unspecified asthma, uncomplicated; F90.9 Attention-deficit hyperactivity disorder, unspecified type; F12.10 Cannabis abuse, uncomplicated; F41.9 Anxiety disorder, unspecified; Z91.09 Other allergy status, other than to drugs and biological substances; Z79.51 Long term (current) use of inhaled steroids; Z79.2 Long term (current) use of antibiotics; Z79.899 Other long term (current) drug therapy

== ENCOUNTER 2024-08-09 14:27 | Inpatient (IN) | payer OTHER, MEDICAID ==
[~2024-08-09] VITALS: Ht 182.9 cm; Wt 101.4 kg
[~2024-08-09 14:27] MED LIST changes: -ABIL400I PO; +ACET-683 PO; -AMBI10TA PO; +ARIP400S PO; +BACT800T5 PO; +BACTDSTA; +FEXO-112 PO; +FLUTISP NARES; +INVE234I IM; +LAMO-18; -LAMO25TA4; +METH-1164 PO; +MINO50CA3 PO; +MUPI2OI TOP; +PALI1TAB3 PO; +PRED10TA2 PO; +ZOLP-533 PO
[2024-08-09 15:15] LABS: PLATELET COUNT, AUTOMATED 243 10^3/uL (150-450)
[2024-08-09] MEDS ORDERED: FLON1SPR (15:21)
[2024-08-09] MEDS ORDERED: INVE234I IM (15:21)
[2024-08-09] MEDS ORDERED: MINO50CA3 PO (15:21)
[2024-08-09] MEDS ORDERED: MUPI2OI TOP (15:21)
[2024-08-09] MEDS ORDERED: PALI1TAB3 PO (15:21)
[2024-08-09] MEDS ORDERED: HOME MED LIST COMPLETE! XX SCH (15:25)
[2024-08-09 15:46] LABS: AMPHETAMINES LEVEL URINE NEGATIVE (NEGATIVE); BARBITURATES URINE NEGATIVE (NEGATIVE); BENZODIAZEPINES URINE NEGATIVE (NEGATIVE); COCAINE METABOLITE URINE NEGATIVE (NEGATIVE); METHADONE URINE NEGATIVE (NEGATIVE); OPIATES URINE NEGATIVE (NEGATIVE); PHENCYCLIDINE URINE NEGATIVE (NEGATIVE)
[2024-08-09 15:50] LABS: CANNABINOIDS URINE POSITIVE (NEGATIVE)
[2024-08-09 15:52] LABS: ETHYL ALCOHOL (ETHANOL) < 0.003 % (0.000-0.010)
[2024-08-09 15:54] LABS: ALT/SGPT 31 U/L (7.0-40); AST/SGOT 23 U/L (<34); CALCIUM LEVEL 9.2 MG/DL (8.5-10.1); CARBON DIOXIDE LEVEL 28 MMOL/L (20-31); CHLORIDE LEVEL 107 MMOL/L (98-107); CREATININE FOR GFR 0.75 MG/DL (0.70-1.30); GLOMERULAR FILTRATION RATE > 90.0 (>60); POTASSIUM SERUM 3.8 MMOL/L (3.5-5.1); SALICYLATE LEVEL < 3.0 MG/DL (<30); SODIUM LEVEL 145 MMOL/L (136-145)
[2024-08-09] MEDS ORDERED: MAALOX 30 ML SUSP *UDC PO PRN (17:05)
[2024-08-09] MEDS: IBUPROFEN 400 MG TAB PO PRN (20:49)
[2024-08-09] MEDS: traZODone 50 MG TAB PO PRN (21:55)
[2024-08-10] MEDS: FLUTICASONE PROPIONATE 0.05% NASAL SPRAY 16 GM NARES SCH (02:25)
[2024-08-10 06:36] VITALS: BP 134/60; TEMP 96.9; O2SAT 98
[2024-08-10] MEDS: SODIUM CHLORIDE NASAL 0.65% SPRAY BTL (OCEAN) SCH (08:03)
[2024-08-10] MEDS: PALIPERIDONE 6MG ER TAB PO SCH (08:03)
[2024-08-10] MEDS: DIVALPROEX 250 MG TAB PO SCH (09:00)
[2024-08-10 15:56] VITALS: BP 133/62; TEMP 98.6; O2SAT 98
[2024-08-11] MEDS: MINOCYCLINE 50 MG CAP PO SCH (02:26)
[2024-08-11] MEDS: LITHIUM CARBONATE 150 MG CAP PO SCH (09:43)
[2024-08-11 15:26] VITALS: BP 117/74; TEMP 97.5; O2SAT 98
[2024-08-12 06:44] VITALS: BP 120/60; TEMP 97.1; O2SAT 98
[2024-08-12] MEDS: METHYLPHENIDATE ER 18 MG TABLET PO SCH (12:57)
[2024-08-12] MEDS: MOM 30 ML SUSPENSION UDC PO PRN (12:58)
[2024-08-12 15:13] VITALS: BP 114/56; TEMP 98.9; O2SAT 98
[2024-08-12] MEDS: LITHIUM CARBONATE 150 MG CAP PO SCH (20:32)
[2024-08-13 06:29] VITALS: BP 137/83; TEMP 97.4; O2SAT 99
[2024-08-13] MEDS ORDERED: LITH150C PO (06:38)
[2024-08-13] MEDS ORDERED: MINO50CA3 PO (06:38)
[2024-08-13] MEDS ORDERED: TRAZ-252 PO (06:38)
[2024-08-13] MEDS: ACETAMINOPHEN 325 MG TAB PO PRN (10:39)
[2024-08-13] MEDS ORDERED: METH18TA PO (10:57)
== END 2024-08-13 12:07 | disposition home or self-care (01) | DRG 753 ==
LOC: M ED 14:27 → M ED INP 17:03 → M PSY 17:58
PROVIDERS: ADMIT General Practice; ATTEND General Practice
DX: F31.2 Bipolar disorder, current episode manic severe with psychotic features (principal); F12.20 Cannabis dependence, uncomplicated; F41.0 Panic disorder [episodic paroxysmal anxiety]; Z79.899 Other long term (current) drug therapy; Z91.048 Other nonmedicinal substance allergy status; Z56.0 Unemployment, unspecified

== ENCOUNTER 2024-08-18 19:11 | Inpatient (IN) | payer MEDICAID, OTHER ==
[~2024-08-18] VITALS: Ht 182.9 cm; Wt 96.8 kg
[~2024-08-18 19:11] MED LIST changes: +FLON1SPR; +LITH150C PO; +METH18TA PO; +TRAZ-252 PO
[2024-08-18 22:24] LABS: PLATELET COUNT, AUTOMATED 279 10^3/uL (150-450)
[2024-08-18 22:53] LABS: AMPHETAMINES LEVEL URINE NEGATIVE (NEGATIVE); BARBITURATES URINE NEGATIVE (NEGATIVE); BENZODIAZEPINES URINE NEGATIVE (NEGATIVE); COCAINE METABOLITE URINE NEGATIVE (NEGATIVE); METHADONE URINE NEGATIVE (NEGATIVE); OPIATES URINE NEGATIVE (NEGATIVE); PHENCYCLIDINE URINE NEGATIVE (NEGATIVE)
[2024-08-18 22:54] LABS: CANNABINOIDS URINE POSITIVE (NEGATIVE)
[2024-08-18 22:55] LABS: ETHYL ALCOHOL (ETHANOL) < 0.003 % (0.000-0.010)
[2024-08-18 22:56] LABS: SALICYLATE LEVEL < 3.0 MG/DL (<30)
[2024-08-18 23:04] LABS: ALT/SGPT 33 U/L (7.0-40); AST/SGOT 27 U/L (<34); CALCIUM LEVEL 10.3 MG/DL (8.5-10.1); CARBON DIOXIDE LEVEL 25 MMOL/L (20-31); CHLORIDE LEVEL 103 MMOL/L (98-107); CREATININE FOR GFR 0.94 MG/DL (0.70-1.30); GLOMERULAR FILTRATION RATE > 90.0 (>60); POTASSIUM SERUM 3.9 MMOL/L (3.5-5.1); SODIUM LEVEL 142 MMOL/L (136-145)
[2024-08-19] MEDS ORDERED: MINO50CA4 PO (08:52)
[2024-08-19] MEDS ORDERED: METH1TAB13 PO (08:52)
[2024-08-19] MEDS ORDERED: TRAZ-252 PO (08:52)
[2024-08-19] MEDS ORDERED: LITH300T2 PO (08:52)
[2024-08-19] MEDS ORDERED: HOME MED LIST COMPLETE! XX SCH (08:55)
[2024-08-19] MEDS: MINOCYCLINE 50 MG CAP PO SCH (09:00)
[2024-08-19] MEDS: METHYLPHENIDATE ER 18 MG TABLET PO SCH (09:14)
[2024-08-19] MEDS: LITHIUM CARBONATE 300 MG CAP PO SCH ×2 (09:14→21:00)
[2024-08-19] MEDS ORDERED: MOM 30 ML SUSPENSION UDC PO PRN (17:40)
[2024-08-19] MEDS ORDERED: MAALOX 30 ML SUSP *UDC PO PRN (17:40)
[2024-08-19 18:32] VITALS: BP 145/86; TEMP 97.5; O2SAT 100
[2024-08-19] MEDS: IBUPROFEN 400 MG TAB PO PRN (18:51)
[2024-08-19] MEDS: ACETAMINOPHEN 325 MG TAB PO PRN (20:13)
[2024-08-19] MEDS: traZODone 50 MG TAB PO PRN (20:13)
[2024-08-19] MEDS: FLUTICASONE PROPIONATE 0.05% NASAL SPRAY 16 GM NARES SCH (21:00)
[2024-08-20 06:36] VITALS: BP 113/72; TEMP 97; O2SAT 98
[2024-08-20 15:23] VITALS: BP 116/66; TEMP 98.3; O2SAT 99
[2024-08-20] MEDS: MINOCYCLINE 50 MG CAP PO SCH (20:29)
[2024-08-21 06:29] VITALS: BP 122/57; TEMP 97.4; O2SAT 100
[2024-08-21] MEDS: METHYLPHENIDATE ER 18 MG TABLET PO SCH (07:18)
[2024-08-21 18:38] VITALS: BP 121/69; TEMP 98; O2SAT 100
[2024-08-21] MEDS: PALIPERIDONE 3MG ER TAB PO SCH (20:30)
[2024-08-21] MEDS: LITHIUM CARBONATE 150 MG CAP PO SCH (20:30)
[2024-08-22 06:21] VITALS: BP 140/59; TEMP 97.4; O2SAT 97
[2024-08-22] MEDS ORDERED: LITH150C PO (08:30)
[2024-08-22] MEDS ORDERED: PALI1TAB2 PO (08:30)
[2024-08-22] MEDS ORDERED: LITH450T17 PO (15:25)
== END 2024-08-22 09:25 | disposition home or self-care (01) | DRG 753 ==
LOC: M ED 19:11 → M ED INP 08-19 17:37 → M PSY 08-19 18:26
PROVIDERS: ADMIT Psychiatry & Neurology Neurology; ATTEND Psychiatry & Neurology Neurology
DX: F31.2 Bipolar disorder, current episode manic severe with psychotic features (principal); F41.0 Panic disorder [episodic paroxysmal anxiety]; F12.90 Cannabis use, unspecified, uncomplicated; F60.2 Antisocial personality disorder; F90.9 Attention-deficit hyperactivity disorder, unspecified type; M54.9 Dorsalgia, unspecified; G89.29 Other chronic pain; Z79.899 Other long term (current) drug therapy; Z91.51 Personal history of suicidal behavior; Z91.048 Other nonmedicinal substance allergy status; Z62.810 Personal history of physical and sexual abuse in childhood

== ENCOUNTER 2024-08-25 13:40 | Emergency (ER) | payer OTHER ==
[~2024-08-25] VITALS: Ht 182.9 cm; Wt 97.9 kg
[~2024-08-25 13:40] MED LIST changes: +LITH300T2 PO; +LITH450T17 PO; +METH1TAB13 PO; +MINO50CA4 PO; +PALI1TAB2 PO
[2024-08-25 13:45] VITALS: BP 117/77; TEMP 97; O2SAT 100
== END 2024-08-25 16:08 | disposition left against medical advice (07) ==
LOC: M ED 13:40
DX: Z53.21 Procedure and treatment not carried out due to patient leaving prior to being seen by health care provider (principal)

== ENCOUNTER 2024-08-26 08:47 | Emergency (ER) | payer OTHER ==
[~2024-08-26] VITALS: Ht 182.9 cm; Wt 99.2 kg
[2024-08-26 09:24] LABS: BASO # 0.0 10^3/uL (0.0-0.2); BASO % 0.8 % (0.0-1.0); EOS # 0.2 10^3/uL (0.0-0.5); EOS % 4.3 % (0.0-3.0); LYMPH # 1.1 10^3/uL (1.5-5.0); LYMPH % 20.4 % (24.0-44.0); MONO # 0.4 10^3/uL (0.0-0.8); MONO % 8.3 % (2.0-8.0); NEUTROPHILS # 3.5 10^3/uL (1.5-8.5); NEUTROPHILS % 65.8 % (36.0-66.0); PLATELET COUNT, AUTOMATED 277 10^3/uL (150-450)
[2024-08-26 09:48] LABS: ALT/SGPT 28 U/L (7.0-40); AST/SGOT 24 U/L (<34); CALCIUM LEVEL 9.9 MG/DL (8.5-10.1); CARBON DIOXIDE LEVEL 30 MMOL/L (20-31); CHLORIDE LEVEL 105 MMOL/L (98-107); CREATININE FOR GFR 0.88 MG/DL (0.70-1.30); GLOMERULAR FILTRATION RATE > 90.0 (>60); LITHIUM LEVEL 0.20 MMOL/L (1.0-1.20); POTASSIUM SERUM 4.1 MMOL/L (3.5-5.1); SODIUM LEVEL 144 MMOL/L (136-145)
[2024-08-26 11:02] LABS: AMPHETAMINES LEVEL URINE NEGATIVE (NEGATIVE); BARBITURATES URINE NEGATIVE (NEGATIVE); BENZODIAZEPINES URINE NEGATIVE (NEGATIVE); COCAINE METABOLITE URINE NEGATIVE (NEGATIVE); METHADONE URINE NEGATIVE (NEGATIVE); OPIATES URINE NEGATIVE (NEGATIVE); PHENCYCLIDINE URINE NEGATIVE (NEGATIVE)
[2024-08-26 11:03] LABS: CANNABINOIDS URINE POSITIVE (NEGATIVE)
[2024-08-26] MEDS: ONDANSETRON 4MG ORAL DISINTEGRATING TAB PO ONE (11:43)
[2024-08-26 12:00] VITALS: BP 123/78
[2024-08-26 12:18] VITALS: TEMP 97.9; O2SAT 99
== END 2024-08-26 12:19 | disposition home or self-care (01) ==
LOC: M ED 08:47
DX: R11.0 Nausea (principal); F31.9 Bipolar disorder, unspecified; F12.10 Cannabis abuse, uncomplicated; Z91.09 Other allergy status, other than to drugs and biological substances; Z79.899 Other long term (current) drug therapy

== ENCOUNTER → 2024-09-06 | Outpatient (CLI) | payer OTHER | LOC: M PLAIMG 11:53 | DX: M25.552 Pain in left hip (principal) ==

== ENCOUNTER 2024-09-15 14:00 | Inpatient (IN) | payer OTHER ==
[2024-09-15 15:19] LABS: PLATELET COUNT, AUTOMATED 223 10^3/uL (150-450)
[2024-09-15] MEDS ORDERED: HYDR-3363 PO (15:23)
[2024-09-15] MEDS ORDERED: PALI1TAB2 PO (15:23)
[2024-09-15] MEDS ORDERED: LITH450T17 PO (15:23)
[2024-09-15] MEDS ORDERED: HOME MED LIST COMPLETE! XX SCH (15:25)
[2024-09-15 15:40] LABS: AMPHETAMINES LEVEL URINE NEGATIVE (NEGATIVE); BARBITURATES URINE NEGATIVE (NEGATIVE); BENZODIAZEPINES URINE NEGATIVE (NEGATIVE); COCAINE METABOLITE URINE NEGATIVE (NEGATIVE); METHADONE URINE NEGATIVE (NEGATIVE); OPIATES URINE NEGATIVE (NEGATIVE); PHENCYCLIDINE URINE NEGATIVE (NEGATIVE)
[2024-09-15 15:42] LABS: CANNABINOIDS URINE POSITIVE (NEGATIVE); ETHYL ALCOHOL (ETHANOL) 0.005 % (0.000-0.010)
[2024-09-15 15:44] LABS: ALT/SGPT 32 U/L (7.0-40); AST/SGOT 18 U/L (<34); CALCIUM LEVEL 9.5 MG/DL (8.5-10.1); CARBON DIOXIDE LEVEL 27 MMOL/L (20-31); CHLORIDE LEVEL 106 MMOL/L (98-107); CREATININE FOR GFR 0.93 MG/DL (0.70-1.30); GLOMERULAR FILTRATION RATE > 90.0 (>60); POTASSIUM SERUM 4.0 MMOL/L (3.5-5.1); SALICYLATE LEVEL < 3.0 MG/DL (<30); SODIUM LEVEL 143 MMOL/L (136-145)
[2024-09-15] MEDS ORDERED: OLANZapine 5 MG TAB PO PRN (16:40)
[2024-09-15] MEDS ORDERED: MAALOX 30 ML SUSP *UDC PO PRN (16:40)
[2024-09-15] MEDS ORDERED: LORazepam 1 MG TAB PO PRN (16:40)
[2024-09-15] MEDS ORDERED: ACETAMINOPHEN 325 MG TAB PO PRN (16:40)
[2024-09-15] MEDS ORDERED: MOM 30 ML SUSPENSION UDC PO PRN (16:40)
[2024-09-15] MEDS: NICOTINE 14 MG/24 HR TRANSDERMAL TD SCH (17:08)
[2024-09-15 20:27] VITALS: BP 104/63; TEMP 96.9; O2SAT 98
[2024-09-15] MEDS: traZODone 50 MG TAB PO PRN (20:44)
[2024-09-15] MEDS: LITHIUM CARBONATE 450 MG **CR** TAB PO SCH (21:06)
[2024-09-16] MEDS: IBUPROFEN 400 MG TAB PO PRN (05:47)
[2024-09-16 06:34] VITALS: BP 128/76; TEMP 96.9; O2SAT 98
[2024-09-16] MEDS: METHYLPHENIDATE ER 18 MG TABLET PO SCH (08:55)
[2024-09-16] MEDS: PALIPERIDONE 3MG ER TAB PO SCH (08:56)
[2024-09-16] MEDS: HALOPERIDOL 5 MG TAB PO ONE (10:39)
[2024-09-16] MEDS: IBUPROFEN 400 MG TAB PO ONE (10:40)
[2024-09-16 15:37] VITALS: BP 137/95; TEMP 97.6; O2SAT 96
[2024-09-16] MEDS: HALOPERIDOL 5 MG TAB PO SCH (20:20)
[2024-09-17 06:28] VITALS: BP 129/67; TEMP 98.3; O2SAT 99
[2024-09-17 08:24] LABS: CHOLESTEROL LEVEL 204.0 MG/DL (<200); CHOLESTEROL RISK RATIO 4.95 (<5); LDL CHOLESTEROL 129.2 MG/DL (<100); NON-HDL-C 162.8 MG/DL; TRIGLYCERIDES LEVEL 168.0 MG/DL (<150)
[2024-09-17] MEDS ORDERED: HALOPERIDOL 10 MG TAB PO SCH (09:00)
[2024-09-17] MEDS ORDERED: FLUTISP NARES (16:35)
[2024-09-17] MEDS ORDERED: TRAZ-257 PO (16:35)
[2024-09-17] MEDS ORDERED: HALO10TA20 PO (16:35)
[2024-09-17] MEDS: HALOPERIDOL 5 MG TAB PO PRN (16:36)
[2024-09-17 17:29] VITALS: BP 115/69; TEMP 98.3; O2SAT 99
[2024-09-17] MEDS: traZODone 100 MG TAB PO PRN (21:08)
[2024-09-17] MEDS: HALOPERIDOL 10 MG TAB PO SCH (21:08)
[2024-09-18 06:45] VITALS: BP 110/65; TEMP 98.3; O2SAT 98
[2024-09-18] MEDS: FLUTICASONE PROPIONATE 0.05% NASAL SPRAY 16 GM NARES SCH (08:06)
[2024-09-18] MEDS ORDERED: HALO5TAB33 PO (08:47)
== END 2024-09-18 10:19 | disposition home or self-care (01) | DRG 753 ==
LOC: M ED 14:00 → M ED INP 16:39 → M PSY 20:11
PROVIDERS: ADMIT Internal Medicine; ATTEND Psychiatry & Neurology Psychiatry
DX: F31.9 Bipolar disorder, unspecified (principal); R45.851 Suicidal ideations; F12.10 Cannabis abuse, uncomplicated; F41.0 Panic disorder [episodic paroxysmal anxiety]; F84.0 Autistic disorder; Z56.0 Unemployment, unspecified; K21.9 Gastro-esophageal reflux disease without esophagitis; R10.32 Left lower quadrant pain; F10.10 Alcohol abuse, uncomplicated; F17.210 Nicotine dependence, cigarettes, uncomplicated; Z79.899 Other long term (current) drug therapy

== ENCOUNTER 2024-09-19 15:27 | Emergency (ER) | payer MEDICAID, OTHER ==
[~2024-09-19 15:27] MED LIST changes: +HALO10TA20 PO; +HALO5TAB33 PO; +HYDR-3363 PO; +TRAZ-257 PO
[2024-09-19 15:42] VITALS: BP 132/72; TEMP 97.7; O2SAT 98
[2024-09-19 15:59] LABS: PLATELET COUNT, AUTOMATED 245 10^3/uL (150-450)
[2024-09-19 16:19] LABS: ETHYL ALCOHOL (ETHANOL) < 0.003 % (0.000-0.010)
[2024-09-19 16:20] LABS: ALT/SGPT 26 U/L (7.0-40); AST/SGOT 19 U/L (<34); CALCIUM LEVEL 10.0 MG/DL (8.5-10.1); CARBON DIOXIDE LEVEL 26 MMOL/L (20-31); CHLORIDE LEVEL 105 MMOL/L (98-107); CREATININE FOR GFR 0.89 MG/DL (0.70-1.30); GLOMERULAR FILTRATION RATE > 90.0 (>60); POTASSIUM SERUM 4.1 MMOL/L (3.5-5.1); SALICYLATE LEVEL < 3.0 MG/DL (<30); SODIUM LEVEL 141 MMOL/L (136-145)
[2024-09-19 16:29] LABS: AMPHETAMINES LEVEL URINE NEGATIVE (NEGATIVE); BARBITURATES URINE NEGATIVE (NEGATIVE)
[2024-09-19 16:30] LABS: BENZODIAZEPINES URINE NEGATIVE (NEGATIVE); COCAINE METABOLITE URINE NEGATIVE (NEGATIVE); METHADONE URINE NEGATIVE (NEGATIVE); OPIATES URINE NEGATIVE (NEGATIVE); PHENCYCLIDINE URINE NEGATIVE (NEGATIVE)
[2024-09-19 16:46] LABS: CANNABINOIDS URINE POSITIVE (NEGATIVE)
[2024-09-19 18:41] LABS: LITHIUM LEVEL 0.32 MMOL/L (1.0-1.20)
== END 2024-09-19 19:31 | disposition home or self-care (01) ==
LOC: M ED 15:27
DX: Z04.6 Encounter for general psychiatric examination, requested by authority (principal); F90.9 Attention-deficit hyperactivity disorder, unspecified type; K21.9 Gastro-esophageal reflux disease without esophagitis; F43.10 Post-traumatic stress disorder, unspecified; F10.10 Alcohol abuse, uncomplicated; Z91.09 Other allergy status, other than to drugs and biological substances; Z79.899 Other long term (current) drug therapy

== ENCOUNTER 2024-09-20 15:10 | Emergency (ER) | payer OTHER ==
[~2024-09-20] VITALS: Ht 180.3 cm; Wt 98.8 kg
[2024-09-20 15:11] VITALS: BP 111/72; TEMP 97.7; O2SAT 97
[2024-09-20 15:55] LABS: PLATELET COUNT, AUTOMATED 264 10^3/uL (150-450)
[2024-09-20 16:27] LABS: AMPHETAMINES LEVEL URINE NEGATIVE (NEGATIVE); BARBITURATES URINE NEGATIVE (NEGATIVE); BENZODIAZEPINES URINE NEGATIVE (NEGATIVE); COCAINE METABOLITE URINE NEGATIVE (NEGATIVE); METHADONE URINE NEGATIVE (NEGATIVE); OPIATES URINE NEGATIVE (NEGATIVE); PHENCYCLIDINE URINE NEGATIVE (NEGATIVE)
[2024-09-20 16:29] LABS: CANNABINOIDS URINE POSITIVE (NEGATIVE)
[2024-09-20 16:32] LABS: ETHYL ALCOHOL (ETHANOL) < 0.003 % (0.000-0.010)
[2024-09-20 16:34] LABS: ALT/SGPT 24 U/L (7.0-40); AST/SGOT 18 U/L (<34); CALCIUM LEVEL 9.8 MG/DL (8.5-10.1); CARBON DIOXIDE LEVEL 27 MMOL/L (20-31); CHLORIDE LEVEL 106 MMOL/L (98-107); CREATININE FOR GFR 0.95 MG/DL (0.70-1.30); GLOMERULAR FILTRATION RATE > 90.0 (>60); POTASSIUM SERUM 3.9 MMOL/L (3.5-5.1); SALICYLATE LEVEL < 3.0 MG/DL (<30); SODIUM LEVEL 142 MMOL/L (136-145)
== END 2024-09-20 17:00 | disposition left against medical advice (07) ==
LOC: M ED 15:10
DX: Z53.21 Procedure and treatment not carried out due to patient leaving prior to being seen by health care provider (principal)

== ENCOUNTER 2024-09-22 08:39 | Emergency (ER) | payer OTHER ==
[~2024-09-22] VITALS: Ht 180.3 cm; Wt 99.3 kg
[2024-09-22 08:45] VITALS: BP 121/71; TEMP 97.5; O2SAT 99
== END 2024-09-22 09:48 | disposition left against medical advice (07) ==
LOC: M ED 08:39
DX: Z53.21 Procedure and treatment not carried out due to patient leaving prior to being seen by health care provider (principal)

== ENCOUNTER 2024-09-25 09:17 | Emergency (ER) | payer OTHER ==
[~2024-09-25] VITALS: Ht 182.9 cm; Wt 100.3 kg
[2024-09-25 10:12] LABS: PLATELET COUNT, AUTOMATED 272 10^3/uL (150-450)
[2024-09-25 10:20] LABS: AMPHETAMINES LEVEL URINE NEGATIVE (NEGATIVE); BARBITURATES URINE NEGATIVE (NEGATIVE); BENZODIAZEPINES URINE NEGATIVE (NEGATIVE); COCAINE METABOLITE URINE NEGATIVE (NEGATIVE); METHADONE URINE NEGATIVE (NEGATIVE); OPIATES URINE NEGATIVE (NEGATIVE); PHENCYCLIDINE URINE NEGATIVE (NEGATIVE)
[2024-09-25 10:21] LABS: CANNABINOIDS URINE POSITIVE (NEGATIVE)
[2024-09-25 10:27] LABS: ALT/SGPT 23 U/L (7.0-40); AST/SGOT 20 U/L (<34); CALCIUM LEVEL 10.2 MG/DL (8.5-10.1); CARBON DIOXIDE LEVEL 28 MMOL/L (20-31); CHLORIDE LEVEL 105 MMOL/L (98-107); CREATININE FOR GFR 0.86 MG/DL (0.70-1.30); GLOMERULAR FILTRATION RATE > 90.0 (>60); POTASSIUM SERUM 4.3 MMOL/L (3.5-5.1); SALICYLATE LEVEL < 3.0 MG/DL (<30); SODIUM LEVEL 142 MMOL/L (136-145)
[2024-09-25 10:30] LABS: ETHYL ALCOHOL (ETHANOL) < 0.003 % (0.000-0.010)
[2024-09-25 10:36] VITALS: BP 117/76; TEMP 98.6; O2SAT 100
[2024-09-25 10:56] LABS: LITHIUM LEVEL 0.28 MMOL/L (1.0-1.20)
== END 2024-09-25 10:41 | disposition left against medical advice (07) ==
LOC: M ED 09:17
DX: F31.9 Bipolar disorder, unspecified (principal); Z79.899 Other long term (current) drug therapy; Z53.20 Procedure and treatment not carried out because of patient's decision for unspecified reasons

== ENCOUNTER → 2024-10-12 | Outpatient (CLI) | payer OTHER ==
[2024-10-12 11:13] LABS: PLATELET COUNT, AUTOMATED 250 10^3/uL (150-450)
[2024-10-12 11:31] LABS: IRON (FE) 104 UG/DL (65-175); PERCENT SATURATION 30.9 % (19.7-50.0)
[2024-10-12 11:32] LABS: ALT/SGPT 19 U/L (7.0-40); AST/SGOT 16 U/L (<34); CALCIUM LEVEL 9.8 MG/DL (8.5-10.1); CARBON DIOXIDE LEVEL 30 MMOL/L (20-31); CHLORIDE LEVEL 104 MMOL/L (98-107); CREATININE FOR GFR 1.02 MG/DL (0.70-1.30); GLOMERULAR FILTRATION RATE > 90.0 (>60); POTASSIUM SERUM 4.3 MMOL/L (3.5-5.1); SODIUM LEVEL 142 MMOL/L (136-145)
[2024-10-12 11:35] LABS: PROLACTIN 7.06 NG/ML (2.1-17.7)
[2024-10-12 11:36] LABS: TESTOSTERONE 418 NG/DL (241-827); THYROXINE (T4) 9.7 UG/DL (4.5-10.9)
[2024-10-12 14:03] LABS: ESTIMATED AVERAGE GLUCOSE 94.0 MG/DL (60-110)
== END ==
LOC: M LAB 09:14
PROVIDERS: ATTEND Nurse Practitioner Psychiatric/Mental Health
DX: F43.22 Adjustment disorder with anxiety (principal)